=== PATIENT | male | born 1980 | race Caucasian/White ===

== ENCOUNTER 2021-12-05 17:10 | Emergency (ER) | payer MEDICARE, MEDICAID, SELFPAY ==
--- NOTE | 2021-12-05 17:15 | ED.DENTAL ---
HPI - Dental/Oral General Chief complaint: Dental/Oral Stated complaint: Toothache Time Seen by Provider: 12/05/21 17:15 Source: patient and RN notes reviewed History of Present Illness HPI Narrative: Patient is a 41-year-old male who presents the urgent care with complaints of left upper and lower dental pain. 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 Patient states that the left lower tooth broke off last night and he had to take a piece out of the gums . Patient denies of any fever, chills, nausea or vomiting. Patient did take ibuprofen for his pain. Patient states that he normally takes hydrocodone if he needs medication for pain . No other acute complaints. No acute distress noted. Patient read the plan of care. Some parts of this dictation were generated by voice recognition software and may contain typographical and/or grammatical inaccuracies. Related Data Home Medications Medication Instructions Recorded Confirmed carvedilol 25 mg PO BID 12/05/21 12/05/21 omeprazole 20 mg PO BID 12/05/21 12/05/21 sacubitril-valsartan [Entresto] 1 tablet PO BID 12/05/21 12/05/21 spironolactone 25 mg PO DAILY 12/05/21 12/05/21 Allergies Allergy/AdvReac Type Severity Reaction Status Date / Time Sulfa (Sulfonamide Allergy Rash Verified 12/05/21 17:29 Antibiotics) MYCINS Allergy Rash Uncoded 12/05/21 17:29 Review of Systems Review of Systems: CONSTITUTIONAL: Denies fever, chills, or sweats. EYES: Denies visual changes, redness, or discharge. ENT: Denies rhinorrhea, congestion, sore throat, or otalgia. Reports of upper and lower left dental pain CARDIOVASCULAR: Denies chest pain, palpitations, or edema. RESPIRATORY: Denies cough or dyspnea. GASTROINTESTINAL: Denies abdominal pain, nausea, vomiting, or diarrhea. GENITOURINARY: Denies dysuria or hematuria. SKIN: Denies rash or itching. MUSCULOSKELETAL: Denies back pain, joint pain, or myalgia. NEUROLOGIC: Denies headache, numbness, or weakness. All other systems reviewed are negative, except as documented in HPI. PMFSH Comments At the time of my signature, I reviewed and agree with the nursing past medical, surgical, social, and family history. There is no relevant family history pertinent to the patient complaint. Exam Narrative: GENERAL: This is a well-nourished, well-developed patient, in no apparent distress. HEAD: normocephalic, atraumatic. EYES: PERRL. Sclera clear/white. Vision is grossly intact. EARS: External ears normal NOSE: External nose normal with no obvious nasal discharge, nares without redness, no rhinorrhea. THROAT: Mucous membranes moist, posterior pharynx clear. DENTAL: Trench mouth, multiple carious lesions and avulsions of dentition. Moderate erythema surrounding the first and second left lower molars with large carious lesions/avulsed at the gumline NECK: Neck supple, non-tender without lymphadenopathy CARDIOVASCULAR: Regular rate and rhythm without murmurs, gallops, or rubs. RESPIRATORY: Clear to auscultation. Breath sounds equal bilaterally. No wheezes, rales, or rhonchi. SKIN: warm, intact with no suspicious lesions or rash, good texture and turgor. NEURO: awake, alert, and oriented to person, place and time. There were no obvious focal neurologic abnormalities. EXTREMITIES: No clubbing, cyanosis, or edema. Course Course Level of Care: Express Care Visit Vital Signs Vital signs: Vital Signs Temperature 99.3 F 12/05/21 17:21 Pulse Rate 78 12/05/21 17:21 Respiratory Rate 16 12/05/21 17:21 Blood Pressure 149/70 H 12/05/21 17:21 Pulse Oximetry 98 12/05/21 17:21 Temperature 99.3 F 12/05/21 17:21 Pulse Rate 78 12/05/21 17:21 Respiratory Rate 16 12/05/21 17:21 Blood Pressure 149/70 H 12/05/21 17:21 Pulse Oximetry 98 12/05/21 17:21 Reviewed-patient is informed that they may have pre-hypertension or hypertension based on a blood pressure reading in
[2021-12-05 17:21] VITALS: BP 149/70; PULSE 78; RESP 16; TEMP 37.4; O2SAT 98
== END 2021-12-05 18:04 | disposition home or self-care (01) ==
PROVIDERS: Emergency Provider Nurse Practitioner Family
DX: K04.7 Periapical abscess without sinus (principal); I50.9 Heart failure, unspecified; K21.9 Gastro-esophageal reflux disease without esophagitis
CPT/HCPCS: 99213; G0463

== ENCOUNTER 2024-12-10 16:36 | Emergency (ER) | payer MEDICARE, MEDICAID, SELFPAY ==
--- NOTE | ~2024-12-10 | CT_ITS ---
EXAMINATION: CT abdomen pelvis w con DATE: 12/10/2024 19:42 INDICATION: Left upper abdominal pain. TECHNIQUE: Computed tomography (CT) of the abdomen and pelvis was performed with 100 mL Omnipaque 350 intravenous contrast. Automated exposure control and iterative reconstruction technique were employe d. The dose-length product was 2131.49 mGy-cm. COMPARISON: None. FINDINGS: The visualized portions of the lung bases demonstrate a 4 mm nodule in right upper lobe, li babak benign. No pleural effusion. The heart size is normal. No pericardial effusion. There is diffuse hepatic steatosis. There is mild splenomegaly. The gallbladder, pancreas, adrenal glands, and kidney s are normal. There is an umbilical hernia containing fat. There are no dilated loops of bowel. There are changes of appendectomy. There are no pathologically enlarged lymph nodes. There is no free intr aperitoneal fluid. There is mild thoracic spondylosis and severe lower lumbar spondylosis. IMPRESSION: 1. Umbilical hernia containing fat. 2. Diffuse hepatic steatosis. 3. Mild splenomegaly, which may be secondary to obesity. Reviewed, dictated and finalized at location A. HAND
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
--- OUTSIDE RECORDS SUMMARY | 2024-12-10 16:37 | XMS_ITS | Encounter Summary ---
Author Organization [facility] Address 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
--- OUTSIDE RECORDS SUMMARY | 2024-12-10 16:37 | XMS_ITS | Clinical Summary ---
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
--- OUTSIDE RECORDS SUMMARY | 2024-12-10 16:37 | XMS_ITS | Referral Summary ---
Author Organization [facility] Address [address] [place] [address] Care Team Providers Care [employer] Technical Assistant Name Role Phone No, Physician Primary Care Provider [phone] Encounters Date Type Department Care Team Description 12/10/2024 1:13 PM [facility] Emergency [facility] Emergency Department [address] [place] [address] 11/29/2024 7:59 PM [facility] - 11/29/2024 10:00 PM [facility] Emergency [facility] Emergency Department [address] [place] [address] [phone] Acute left-sided thoracic back pain (Primary Dx) Discharge Disposition: Discharge to home or self care from Last 3 Months Allergies Active Allergy Reactions Criticality Noted Date Comments Aspirin Erythromycin Penicillins Hives Reaction: Hives, Sulfa (Sulfonamide Antibiotics) Hives Reaction: Hives, Medications acetaminophen-c odeine (TYLENOL with CODEINE #3) 300-30 mg per tablet Take 1 tablet by mouth every 6 (six) hours as needed for pain. 12 tablet 8 Active carvedilol (COREG) 25 mg tablet 8 Active omeprazole (PriLOSEC) 20 mg capsule 8 Active ENTRESTO 24-26 mg tabletIndicatio ns:chronic heart failure 8 Active spironolactone (ALDACTONE) 25 mg tablet 8 Active chlorhexidine (PERIDEX) 0.12 % solution Apply 15 mL to the mouth or throat 2 (two) times a day 120 mL 3 Active HYDROcodone-cherie taminophen (NORCO) 5-325 mg per tabletIndicatio ns:Pain Take 1 tablet by mouth every 6 (six) hours as needed for pain for up to 15 doses 15 tablet 3 Active lidocaine viscous (XYLOCAINE) 2 % solutionIndicat ions:Mouth Irritation Apply 10 mL to the mouth or throat 3 (three) times a day as needed (for mouth/dental pain) 100 mL 3 Active naproxen (NAPROSYN) 500 mg tablet Take 1 tablet (500 mg total) by mouth 2 (two) times a day with meals 30 tablet 4 Active methocarbamoL (ROBAXIN) 500 mg tablet Take 1 tablet (500 mg total) by mouth 2 (two) times a day 20 tablet 4 Active cyclobenzaprine (FLEXERIL) 10 mg tablet Take 1 tablet (10 mg total) by mouth 3 (three) times a day as needed for muscle spasms 30 tablet 5 Active ketorolac (TORADOL) 10 mg tablet Take 1 tablet (10 mg total) by mouth every 6 (six) hours as needed for pain 20 tablet 5 Active lidocaine (LIDODERM) 5 % Place 1 patch on the skin daily Use patch for 12 hours on, 12 hours off. Discard after each use 30 patch 5 Active lidocaine (LIDODERM) 5 % Place 1 patch on the skin daily for 14 days Remove & discard patch within 12 hours or as directed by MD. 14 patch 4 11/29/19 25 Discontinu ed(Therapy completed) Active Problems Problem Noted Date Diagnosed Date Dentalgia 10/06/2018 Dental abscess 10/06/2018 Dental caries extending into pulp 10/06/2018 Obstructive sleep apnea syndrome 01/20/2014 Overview (02/13/2017): Obstructive sleep apnea syndrome Morbid obesity 01/20/2014 Overview (02/14/2017): Morbid obesity Social History Tobacco Use Types Packs/Day Years Used Date Smoking Tobacco: Some Days Alcohol Use Standard Drinks/Week Comments No 0 (1 standard drink = 0.6 oz pur e alcohol) Personal Safety Answer Date Recorded Have you ever been in or are you currently in a harmful physical or emotional relationship or is someone making you feel afraid or unsafe? Denies 12/10/2024 Sex and Gender Information Value Date Recorded Sex Assigned at Not on file Legal Sex Male 10:13 PM SCRIBING MACHINE OPERATOR Gender Identity Not on file Sexual Orientation Not on file Last Filed Vital Signs Vital Sign Reading Time Taken Comments Blood Pressure 110/61 12/10/2024 1:34 PM SCRIBING MACHINE OPERATOR Pulse 77 12/10/2024 1:34 PM SCRIBING MACHINE OPERATOR Temperature 36.6 ??C (97.8 ??F) 12/10/2024 1:33 PM CS T Respiratory Rate 18 12/10/2024 1:34 PM SCRIBING MACHINE OPERATOR Oxygen Saturation 98% 12/10/2024 1:34 PM SCRIBING MACHINE OPERATOR Inhaled Oxygen Concentration - - Weight 176 kg (388 lb 0.2 oz) 12/10/2024 1:33 PM SCRIBING MACHINE OPERATOR Height 194.3 cm (6' 4.5 ) 11/29/2024 4:30 PM SCRIBING MACHINE OPERATOR Body Mass Index 46.61 11/29/2024 4:30 PM SCRIBING MACHINE OPERATOR Plan of Treatment Not on file Procedures Procedure Name Priority Date/Time Associated Diagnosis Comments EGFR STAT 12/10/2024 1:40 PM SCRIBING MACHINE OPERATOR DIFFERENTIAL AUTO STAT 12/10/2024 1:4 0 PM SCRIBING MACHINE OPERATOR LIPASE STAT 12/10/2024 1:40 PM SCRIBING MACHINE OPERATOR COMPREHENSIVE METABOLIC PANEL STAT 12/10/2024 1:40 PM SCRIBING MACHINE OPERATOR CBC WITH AUTO DIFFERENTIAL STAT 12/10/2024 1:40 PM SCRIBING MACHINE OPERATOR from Last 3 Months Results * eGFR (12/10/2024 1:40 PM SCRIBING MACHINE OPERATOR) eGFR >90 >=60 mL/min/1. 73 m2 Comment: Interpretive Data Reference Interval Normal ?>/= 90 mL/min/1.73m2 Mildly decreased* ? 60 - 89 mL/min/1.73m2 Mildly to moderately decreased ?45 - 59 mL/min/1.73m2 Moderately to severely decreased ??30 - 44 mL/min/1.73m2 Severely decreased ?15 - 29 mL/min/1.73m2 Kidney Failure ?< 15 ??mL/min/1.73m2 *Relative to young adult level Estimated glomerular filtration rate is determined by the 2020 CKD-EPI equation recommended by the National Kidney Foundation (A Unifying Approach to GFR Estimation: Recommendations of the NKF-ASK Task Force on Reassessing the Inclusion of Race in Diagnosing Kidney Disease, JASN 2020). The CKD-EPI equation should not be used for patients with unstable renal function and has not been validated in children and those over 70. Current interpretive data was last reviewed 2021. Blood 12/10/2024 1:40 PM SCRIBING MACHINE OPERATOR 12/10/2024 1:50 PM SCRIBING MACHINE OPERATOR Cleopatra Andrea MD LAB BLOOD ORDERABLE S Final Result [facility] ([place]) [address] [facility] Department of Laboratories [place], [place] [id number] * Differential, auto (12/10/2024 1:40 PM SCRIBING MACHINE OPERATOR) Neutrophil abs 5.7 1.5 - 6.5 K/cumm Imm gran abs 0.1 0.0 - 0.1 K/cumm [facility] ([place]) Lymphocyte abs 2.1 0.8 - 3.3 K/cumm [facility] ([place]) Monocyte abs 0.4 0.2 - 0.8 K/cumm [facility] ([place]) Eosinophil abs 0.2 0.0 - 0.5 K/cumm [facility] ([place]) Basophil abs 0.1 0.0 - 0.1 K/cumm [facility] ([place]) Neutrophil pct 66.4 % [facility] ([place]) Comment: Interpretive Data Percent cell count reference ranges are not reported, since discordance with absolute values may lead to misinterpretation of CBC data. Current Interpretive Data was last revised on 2018. Imm gran pct 1.1 % [facility] ([place]) Comment: Interpretive Data Percent cell count reference ranges are not reported, since discordance with absolute values may lead to misinterpretation of CBC data. Current Interpretive Data was last revised on 2018. Lymphocyte pct 24.8 % [facility] ([place]) Comment: Interpretive Data Percent cell count reference ranges are not reported, since discordance with absolute values may lead to misinterpretation of CBC data. Current Interpretive Data was last revised on 2018. Monocyte pct 4.5 % [facility] ([place]) Comment: Interpretive Data Percent cell count reference ranges are not reported, since discordance with absolute values may lead to misinterpretation of CBC data. Current Interpretive Data was last revised on 2018. Eosinophil pct 2.5 % [facility] ([place]) Comment: Interpretive Data Percent cell count reference ranges are not reported, since discordance with absolute values may lead to misinterpretation of CBC data. Current Interpretive Data was last revised on 2018. Basophil pct 0.7 % [facility] ([place]) Comment: Interpretive Data Percent cell count reference ranges are not reported, since discordance with absolute values may lead to misinterpretation of CBC data. Current Interpretive Data was last revised on 2018. Blood 12/10/2024 1:40 PM SCRIBING MACHINE OPERATOR 12/10/2024 1:50 PM SCRIBING MACHINE OPERATOR us Cleopatra Andrea MD LAB BLOOD ORDERABLE S Final Result [facility] ([place]) [address] [facility] [place] [address] * (ABNORMAL) CBC with auto differential (12/10/2024 1:40 PM SCRIBING MACHINE OPERATOR) WBC 8.5 3.8 - 9.9 K/cumm Hgb 11.3(L) 13.0 - 17.5 g/dL [facility] ([place]) Hct 33.7(L) 38.9 - 50.3 % [facility] ([place]) Plt 265 150 - 400 K/cumm [facility] ([place]) MPV 9.9 9.1 - 12.3 fL [facility] RBC 4.15(L) 4.30 - 5.80 M/cumm [facility] ([place]) MCV 81.2(L) 81.3 - 96.4 fL [facility] ([place]) MCH 27.2 27.1 - 33.3 pg [facility] ([place]) MCHC 33.5 32.3 - 35.7 g/dL [facility] ([place]) RDW CV 16.7(H) 11.1 - 14.9 % [facility] ([place]) RDW SD 49.0(H) 35.7 - 48.1 fL [facility] NRBC abs 0.00 0.00 - 0.01 K/cumm [facility] Blood (Blood, Venous) 12/10/2024 1:40 PM SCRIBING MACHINE OPERATOR 12/10/2024 1:50 PM SCRIBING MACHINE OPERATOR Cleopatra Andrea MD LAB BLOOD ORDERABLE S Final Result [facility] ([place]) [address] [facility] [place] [address] * Lipase (12/10/2024 1:40 PM SCRIBING MACHINE OPERATOR) [facility] Lipase 25 10 - 99 Units/L Blood (Blood, Venous) 12/10/2024 1:40 PM SCRIBING MACHINE OPERATOR 12/10/2024 1:50 PM SCRIBING MACHINE OPERATOR Cleopatra Andrea MD LAB BLOOD ORDERABLE S Final Result [facility] ([place]) [address] [facility] [place] [address] * (ABNORMAL) Comprehensive metabolic panel (12/10/2024 1:40 PM SCRIBING MACHINE OPERATOR) Sodium 139 135 - 145 mmol/L Potassium, pl 3.7 3.3 - 4.9 mmol/L [facility] ([place]) Chloride 106 97 - 110 mmol/L [facility] ([place]) CO2 24 22 - 32 mmol/L [facility] ([place]) Anion gap 10 2 - 15 mmol/L [facility] ([place]) BUN 7 6 - 25 mg/dL [facility] ([place]) Creatinine 0.68(L) 0.80 - 1.30 mg/dL [facility] ([place]) Glucose 126 70 - 199 mg/dL [facility] ([place]) Comment: Interpretive Data Fasting glucose >/= 126 mg/dl is diagnostic for diabetes. ?? Fasting is defined as no caloric intake for at least 8 hours. Fasting glucose between 100 mg/dl to 125 mg/dl is diagnostic of prediabetes. In a patient with classic symptoms of hyperglycemia or hyperglycemic crisis, a random glucose >/= 200 mg/dl is diagnostic for diabetes. In the absence of unequivocal hyperglycemia, results should be confirmed by repeat testing. The classification and Diagnosis of Diabetes Diabetes Care 202; 46: S19-S40. Current interpretive data was last revised 2022. Calcium 8.4(L) 8.5 - 10.3 mg/dL [facility] ([place]) Bilirubin, total 0.4 0.1 - 1.2 mg/dL [facility] ([place]) Protein, pl 6.7 6.5 - 8.5 g/dL [facility] ([place]) Albumin 3.7 3.5 - 5.0 g/dL [facility] ([place]) Alk phos 75 40 - 130 Units/L [facility] ([place]) ALT 25 7 - 55 Units/L [facility] ([place]) AST 18 10 - 50 Units/L [facility] ([place]) Blood 12/10/2024 1:40 PM SCRIBING MACHINE OPERATOR 12/10/2024 1:50 PM SCRIBING MACHINE OPERATOR us Cleopatra Andrea MD LAB BLOOD ORDERABLE S Final Result [facility] ([place]) [address] [facility] [place] [address] from Last 3 Months Insurance [facility]1983 MEDICAID IDPA [facility] MEDICARE [facility] Care Teams [employer] Technical Assistant Relationship Specialty Start Date End Date No, Physician PCP - General 05/25/24
--- OUTSIDE RECORDS SUMMARY | 2024-12-10 16:37 | XMS_ITS | Encounter Summary ---
Author Organization [facility] Healthcare Address [address] [place] [address] Care Team Providers Care Utility Helicopter Repairer Name Role Phone No, Physician Primary Care Provider Reason for Visit * Reason Comments Abdominal Pain Encounter Details Date Type Department Care Team (Late st Contact Info) Description 12/10/2024 1:13 PM LOG BUNCHER Emergency [facility] Emergency Department [address] [place] [id number] Social History Tobacco Use Types Packs/Day Years [...] on file Legal Sex Male 10:13 PM LOG BUNCHER Gender Identity Not on file Sexual Orientation Not on file documented as of this encounter Last Filed Vital Signs Vital Sign Reading Time Taken Comments Blood Pressure 110/61 12/10/2024 1:34 PM LOG BUNCHER Pulse 77 12/10/2024 1:34 PM LOG BUNCHER Temperature 36.6 ??C (97.8 ??F) 12/10/2024 1:33 PM CS T Respiratory Rate 18 12/10/2024 1:34 PM LOG BUNCHER Oxygen Saturation 98% 12/10/2024 1:34 PM LOG BUNCHER Inhaled Oxygen Concentration - - Weight 176 kg (388 lb 0.2 oz) 12/10/2024 1:33 PM LOG BUNCHER Height - - Body Mass Index 46.61 11/29/2024 4:30 PM LOG BUNCHER documented in this encounter ED Notes * Brandin Garcia RN - 12/10/2024 1:31 PM CST Pt to ED via POV. Per Pt he has had LUQ for the past 2 weeks. Pt reports diarrhea x2 weeks. BUNCHER documented in this encounter Plan of Treatment Scheduled Orders Name Type Priority Associated Diagnoses Orde r Schedule Urinalysis reflex to microscopic and culture Urine Microbiology STAT STAT for 1 Occurrences starting 12/10/2024 until 12/10/2024 documented as of this encounter Procedures Procedure Name Priority Date/Time Associated Diagnosis Comments EGFR STAT 12/10/2024 1:40 PM LOG BUNCHER DIFFERENTIAL AUTO STAT 12/10/2024 1:4 0 PM LOG BUNCHER CBC WITH AUTO DIFFERENTIAL STAT 12/10/2024 1:40 PM LOG BUNCHER LIPASE STAT 12/10/2024 1:40 PM LOG BUNCHER COMPREHENSIVE METABOLIC PANEL STAT 12/10/2024 1:40 PM LOG BUNCHER documented in this encounter Results * eGFR (12/10/2024 1:40 PM LOG BUNCHER) eGFR >90 >=60 mL/min/1. 73 m2 Comment: Interpretive Data Reference Interval Normal ?>/= 90 mL/min/1.73m2 Mildly decreased* ? 60 - 89 mL/min/1.73m2 Mildly to moderately decreased ?45 - 59 mL/min/1.73m2 Moderately to severely decreased ??30 - 44 mL/min/1.73m2 Severely decreased ?15 - 29 mL/min/1.73m2 Kidney Failure ?< 15 ??mL/min/1.73m2 *Relative to young adult level Estimated glomerular filtration rate is determined by the 2021 CKD-EPI equation recommended by the National Kidney [...] last reviewed 2021. Blood 12/10/2024 1:40 PM LOG BUNCHER 12/10/2024 1:50 PM LOG BUNCHER us Cleopatra Andrea MD LAB BLOOD ORDERABLE S Final Result [facility] ([place]) 1 [facility] [place] [address] * Differential, auto (12/10/2024 1:40 PM LOG BUNCHER) Neutrophil abs 5.7 1.5 - 6.5 K/cumm [...] revised on 2018. Basophil pct 0.7 % [facility] ([place]) Comment: Interpretive Data Percent cell count reference ranges are not reported, since discordance with absolute values may lead to misinterpretation of CBC data. Current Interpretive Data was last revised on 2018. Blood 12/10/2024 1:40 PM LOG BUNCHER 12/10/2024 1:50 PM LOG BUNCHER Cleopatra Andrea MD LAB BLOOD ORDERABLE S Final Result [facility] ([place]) 1 [facility] [place] [address] * Lipase (12/10/2024 1:40 PM LOG BUNCHER) Pathologist [facility] Lipase 25 10 - 99 Units/L Blood (Blood, Venous) 12/10/2024 1:40 PM LOG BUNCHER 12/10/2024 1:50 PM LOG BUNCHER Cleopatra Andrea MD LAB BLOOD ORDERABLE S Final Result [facility] ([place]) 1 [facility] [place] [address] * (ABNORMAL) Comprehensive metabolic panel (12/10/2024 1:40 PM LOG BUNCHER) Sodium 139 135 - 145 mmol/L Potassium, pl 3.7 3.3 - 4.9 mmol/L [facility] ([place]) Chloride 106 97 - 110 mmol/L [facility] [...] classification and Diagnosis of Diabetes Diabetes Care 2021; 46: S19-S40. Current interpretive data was last [...] [facility] ([place]) Blood 12/10/2024 1:40 PM LOG BUNCHER 12/10/2024 1:50 PM LOG BUNCHER us Cleopatra Andrea MD LAB BLOOD ORDERABLE S Final Result [facility] ([place]) 1 [facility] [place] [address] * (ABNORMAL) CBC with auto differential (12/10/2024 1:40 PM LOG BUNCHER) WBC 8.5 3.8 - 9.9 K/cumm Hgb 11.3(L) 13.0 - 17.5 g/dL [facility] ([place]) Hct 33.7(L) 38.9 - 50.3 % [facility] ([place]) Plt 265 150 - 400 K/cumm [facility] ([place]) MPV 9.9 9.1 - 12.3 fL [facility] ([place]) RBC 4.15(L) 4.30 - 5.80 M/cumm [facility] ([place]) MCV 81.2(L) 81.3 - 96.4 fL [facility] ([place]) MCH 27.2 27.1 - 33.3 pg [facility] ([place]) MCHC 33.5 32.3 - 35.7 g/dL [facility] ([place]) RDW CV 16.7(H) 11.1 - 14.9 % [facility] ([place]) RDW SD 49.0(H) 35.7 - 48.1 fL [facility] ([place]) NRBC abs 0.00 0.00 - 0.01 K/cumm [facility] ([place] Blood (Blood, Venous) 12/10/2024 1:40 PM LOG BUNCHER 12/10/2024 1:50 PM LOG BUNCHER us Cleopatra Andrea MD LAB BLOOD ORDERABLE S Final Result [facility] ([place]) 1 [facility] [place] [address] documented in this encounter Visit Diagnoses Not on filedocumented in this encounter Orders Nursing Count Last Ordered Date First Orde red Date MISCELLANEOUS NURSING CARE ORDER (SPECIFY) 1 12/10/2024 IV Count Last Ordered Date First Orde red Date SALINE LOCK IV 1 12/10/2024 documented in this encounter Care Teams Utility Helicopter Repairer Relationship Specialty Start Date End Date No, Physician PCP - General 05/25/24 documented as of this encounter
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
--- OUTSIDE RECORDS SUMMARY | 2024-12-10 16:37 | XMS_ITS | Clinical Summary ---
[facility] Organization [facility] Address [address] [place] [address] Care Team Providers Care Manager Test Name Role Phone No, Physician Primary Care Provider [phone] Allergies Active Allergy Reactions Criticality Noted Date [...] Morbid obesity 01/20/2014 Overview (02/14/2017): Morbid obesity Encounters Date Type Department Care Team Description 12/10/2024 1:13 PM [facility] Emergency [facility] Emergency Department [address] [place] [address] 11/29/2024 7:59 PM [facility] - 11/29/2024 10:00 PM [facility] Emergency Department [address] [place] [address] Acute left-sided thoracic back pain (Primary Dx) Discharge Disposition: Discharge to home or self care from Last 3 Months Medical History Medical History Date Comments Tension headache Headache, tensi on Hx Other Medical Headache, migra ine Myocardial infarction (HCC) Myoc ardial infarction Family History Medical History Relation Name Comments Cancer Father Cancer; Migraines Mother Migraine; Other Other No family histo ry of headache; Relation Name Status Comments Father Mother Other Social History Tobacco Use Types Packs/Day Years [...] on file Legal Sex Male 10:13 PM DELIVERY RN Gender Identity Not on file Sexual Orientation Not on file Obstetrics History Last Filed Vital Signs Vital Sign Reading Time Taken Comments Blood Pressure 110/61 12/10/2024 1:34 PM DELIVERY RN Pulse 77 12/10/2024 1:34 PM DELIVERY RN Temperature 36.6 ??C (97.8 ??F) 12/10/2024 1:33 PM CS T Respiratory Rate 18 12/10/2024 1:34 PM DELIVERY RN Oxygen Saturation 98% 12/10/2024 1:34 PM DELIVERY RN Inhaled Oxygen Concentration - - Weight 176 kg (388 lb 0.2 oz) 12/10/2024 1:33 PM DELIVERY RN Height 194.3 cm (6' 4.5 ) 11/29/2024 4:30 PM DELIVERY RN Body Mass Index 46.61 11/29/2024 4:30 PM DELIVERY RN Plan of Treatment Health Maintenance Due Date Last Done Comments Depression Screening 1980 Hepatitis C Screening 1980 Pneumococcal vaccine <65 (1 of 2 - PCV) 1986 Varicella Vaccines (1 of 2 - 13+ 2-dose series) 1993 Hepatitis B Screening 1998 Regular Well Visit/Exam 18-64 1998 DTaP/Tdap/Td Vaccine (1 - Tdap) 11/20/2002 3 Influenza Vaccine (#1) 2024 HPV Vaccines Aged Out No longer eligi ble based on patient's age to complete this topic Procedures Procedure Name Priority Date/Time Associated Diagnosis Comments EGFR STAT 12/10/2024 1:40 PM DELIVERY RN DIFFERENTIAL AUTO STAT 12/10/2024 1:4 0 PM DELIVERY RN LIPASE STAT 12/10/2024 1:40 PM DELIVERY RN COMPREHENSIVE METABOLIC PANEL STAT 12/10/2024 1:40 PM DELIVERY RN CBC WITH AUTO DIFFERENTIAL STAT 12/10/2024 1:40 PM DELIVERY RN from Last 3 Months Results * eGFR (12/10/2024 1:40 PM DELIVERY RN) eGFR >90 >=60 mL/min/1. 73 m2 Comment: [...] last reviewed 2021. Blood 12/10/2024 1:40 PM DELIVERY RN 12/10/2024 1:50 PM DELIVERY RN us Cleopatra Andrea MD LAB BLOOD ORDERABLE S Final Result [facility] [place]) 1 [facility] [place] [address] * Differential, auto (12/10/2024 1:40 PM DELIVERY RN) Neutrophil abs 5.7 1.5 - 6.5 K/cumm [...] revised on 2018. Blood 12/10/2024 1:40 PM DELIVERY RN 12/10/2024 1:50 PM DELIVERY RN Cleopatra Andrea MD LAB BLOOD ORDERABLE S Final Result [facility] ([place]) 1 [facility] [employer] [address] * (ABNORMAL) CBC with auto differential (12/10/2024 1:40 PM DELIVERY RN) WBC 8.5 3.8 - 9.9 K/cumm Hgb [...] NRBC abs 0.00 0.00 - 0.01 K/cumm [facility] ([place]) Blood (Blood, Venous) 12/10/2024 1:40 PM DELIVERY RN 12/10/2024 1:50 PM DELIVERY RN Cleopatra Andrea MD LAB BLOOD ORDERABLE S Final Result [facility] ([place]) 1 [facility] [place] [address] * Lipase (12/10/2024 1:40 PM DELIVERY RN) Lipase 25 10 - 99 Units/L Blood (Blood, Venous) 12/10/2024 1:40 PM DELIVERY RN 12/10/2024 1:50 PM DELIVERY RN us Cleopatra Andrea MD LAB BLOOD ORDERABLE S Final Result [facility] ([place]) 1 [facility] [place] [address] * (ABNORMAL) Comprehensive metabolic panel (12/10/2024 1:40 PM DELIVERY RN) Sodium 139 135 - 145 mmol/L Potassium, pl 3.7 3.3 - 4.9 mmol/L [facility] Chloride 106 97 - 110 mmol/L [facility] ([place]) CO2 24 22 - 32 mmol/L [facility] ([place]) Anion gap 10 2 - 15 mmol/L [facility] ([place]) BUN 7 6 - 25 mg/dL [facility]) Creatinine 0.68(L) 0.80 - 1.30 mg/dL [facility]) Glucose 126 70 - 199 mg/dL [facility] ([place]) Comment: Interpretive Data Fasting glucose [...] [facility] ([place]) Blood 12/10/2024 1:40 PM DELIVERY RN 12/10/2024 1:50 PM DELIVERY RN us Cleopatra Andrea MD LAB BLOOD ORDERABLE S Final Result [facility] ([place]) 1 [facility] [place] [address] from Last 3 Months [facility] ID[employer] Care Teams Manager Test Relationship Specialty Start Date End Date No, Physician PCP - General 05/25/24
--- OUTSIDE RECORDS SUMMARY | 2024-12-10 16:37 | XMS_ITS | Encounter Summary ---
Author Organization [employer] Address 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
--- OUTSIDE RECORDS SUMMARY | 2024-12-10 16:37 | XMS_ITS | Encounter Summary ---
Author Organization [employer] Address 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
--- OUTSIDE RECORDS SUMMARY | 2024-12-10 16:38 | XMS_ITS | Clinical Summary ---
Author Organization [facility] [employer] Address [address] [facility] [place] [address] Care Team Providers Care 1St Pressman Name Role Phone Davy Bacon MD Primary Care Provider [phone] Source Comments [facility] [employer],non-owned Affiliates and Associated Physician Practices is amultiple site organization consisting of ambulatory clinics and hospital sitesin [place], [place], [place] and [place]. This disclosure is being madepursuant to the Care Everywhere program and may not contain all information available regarding this patient. Last updated 18.[facility] [employer] Allergies Active Allergy Reactions Criticality Noted Date Comments Clindamycin Other Low 01/21/2014 Chemical Hepatitis Erythromycin Other Medium 03/29/2011 Chemical hepatitis Penicillins Skin Reactions 03/29/2011 Sulfa Drugs Skin Reactions 03/29/2011 Medications * Be aware that medications may not be up to date on this document. Alwaysverify current medications with the patient. 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 Social History Tobacco Use Types Packs/Day Years Used Date Smoking Tobacco: Former Cigarettes Q uit: 11/10/2005 Smokeless Tobacco: Current Alcohol Use Standard Drinks/Week Comments No 0 (1 standard drink = 0.6 oz pur e alcohol) Sex and Gender Information Value Date Recorded Sex Assigned at Not on file Gender Identity Not on file Sexual Orientation Not on file Last Filed Vital Signs Vital Sign Reading Time Taken Comments Blood Pressure 121/77 08/17/2019 3:51 PM CDT Pulse 88 08/17/2019 3:51 PM CDT Temperature 36.6 ??C (97.9 ??F) 08/23/2015 2:45 PM CD T Respiratory Rate 15 08/23/2015 2:45 PM CDT Oxygen Saturation 100% 08/23/2015 2:45 PM CDT Inhaled Oxygen Concentration - - Weight 166.5 kg (367 lb) 08/17/2019 3:51 PM CDT Height 195.6 cm (6' 5 ) 08/17/2019 3:51 PM CDT Body Mass Index 43.52 08/17/2019 3:51 PM CDT Plan of Treatment Health Maintenance Due Date Last Done Comments LIPID TESTING 1980 HIV SCREENING 1995 HEPATITIS C SCREENING 07/06/1998 DTAP/TDAP/TD VACCINES (1 - Tdap) 1999 HEPATITIS B VACCINE (1 of 3 - 19+ 3-dose series) 1999 COVID-19 VACCINE ( - 2023-2 5 season) 2024 INFLUENZA VACCINE (#1) 2024 DEPRESSION SCREENING 11/10/2024 MEDICARE AWV ? CALENDAR YEAR 2024 ZOSTER VACCINE (1 of 2) 2030 HIB VACCINE Aged Out No longer eligi ble based on patient's age to complete this topic HPV VACCINE Aged Out No longer eligi ble based on patient's age to complete this topic MENINGOCOCCAL (Group B) VACCINE Aged Out No longer eligible based on patient's age to complete this topic MENINGOCOCCAL VACCINE Aged Out No demetrius ravin eligible based on patient's age to complete this topic PNEUMOCOCCAL VACCINE Aged Out No long er eligible based on patient's age to complete this topic Care Teams 1St Pressman Relationship Specialty Start Date End Date Davy Bacon MD PCP - General 05/21/12
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
--- OUTSIDE RECORDS SUMMARY | 2024-12-10 16:38 | XMS_ITS | Patient Health Summary ---
Author Organization [facility] Address [address] [address] Care Team Providers Care Insurance Claims Supervisor Name Role Phone Davy Bacon MD Primary Care Provider [phone] Note from [facility],non-owned Affiliates and Associated Physician Practices is amultiple site organization consisting of ambulatory clinics and hospital sitesin [place], [place], [place] and [place]. This disclosure is being madepursuant to the Care Everywhere program and may not contain all information available regarding this patient. Last updated 18.[facility] Allergies * Clindamycin(Other) -Low Criticality * Erythromycin(Other) -Medium Criticality * Penicillins(Skin Reactions) * Sulfa Drugs(Skin Reactions) Medications * Be aware that medications may not be up to date on this document. Alwaysverify current medications with the patient. * carvedilol (COREG) 25 MG tablet(Started 06/18/2019) * omeprazole (PRILOSEC) 20 MG capsule(Started 08/17/2019) * ENTRESTO 24-26 MG tablet(Started 07/30/2019) * spironolactone (ALDACTONE) 25 MG tablet(Started 08/17/2019) Active Problems Problem Noted Date Diagnosed Date [...] Mass Index 43.52 08/17/2019 3:51 PM CDT Procedures * PATHOLOGY TISSUE(Performed 08/23/2015) * BASIC METABOLIC PANEL (CALCIUM TOTAL)(Performed 08/23/2015) * PATHOLOGY/GENETICS HISTORICAL-ONBASE(Performed 08/23/2015) * PATHOLOGY TISSUE(Performed 01/13/2014) * PATHOLOGY/GENETICS HISTORICAL-ONBASE(Performed 01/13/2014) * BASIC METABOLIC PANEL (CALCIUM TOTAL)(Performed 01/04/2014) * TYPE + SCREEN PANEL(Performed 01/04/2014) * BASIC METABOLIC PANEL (CALCIUM TOTAL)(Performed 01/04/2014) * CBC W AUTO DIFFERENTIAL(Performed 01/04/2014) * XR CHEST 2VW(Performed 01/04/2014) * FL SWALLOWING FUNCTION STUDY(Performed 05/04/2013) * PATHOLOGY REPORTS - HPF HISTORICAL(Performed 09/23/2012) * PATHOLOGY/GENETICS HISTORICAL-ONBASE(Performed 09/03/2012) * XR KNEE LEFT 3VW(Performed 05/21/2012) * LAB HISTORICAL RESULTS-ONBASE(Performed 07/07/2011) * LAB HISTORICAL RESULTS-ONBASE(Performed 07/07/2011) * LAB HISTORICAL RESULTS-ONBASE(Performed 07/07/2011) * LAB HISTORICAL RESULTS-ONBASE(Performed 04/03/2011) Results * PATHOLOGY TISSUE (08/23/2015 12:55 PM CDT) Only the most recent of2 resultswithin the time period is included. Surgical Pathology Tissue CLINICAL HISTORY: No history is given. FINAL DIAGNOSIS: SKIN, NECK, MIDLINE, EXCISION: - ? CICATRIX GROSS DESCRIPTION: The specimen is received in formalin in one container for gross and microscopic examination, labeled with the patient's name, Viral Gramajo and midline neck scar , and is an un-oriented white-morley, hair-bearing skin ellipse measuring 5.5 x 2.0 cm and excised to a depth of 0.4 cm. Within the approximate center of the skin ellipse is a scar measuring 1.1 cm in length x 0.1 cm in width. ??No other lesions are identified. ??The specimen is inked blue. ??The specimen is sectioned and personal banking representative sections through the scar are submitted in cassette A1. PW/gume MICROSCOPIC DESCRIPTION: Review of the material reveals squamous epithelium overlying fibrotic dermis. ??Focal areas of the epidermis are flattened with loss of rete ridges. ??No evidence of dysplasia or malignancy is appreciated. MH/PW/edk The performance characteristics of all immunohistochemical and indirect immunofluorescence stains (if any) cited in this report were determined by the Histopathology Laboratory of [facility].?? Some of these tests were developed by our own laboratory and have not been cleared or approved by the US Food and Drug Administration.?The FDA does not require this test to go through premarket FDA review.?These tests are used for clinical purposes. They should not be regarded as investigational or for research.?? This laboratory is certified under the Clinical Laboratory Improvement Amendments (CLIA) as qualified to perform high complexity clinical laboratory testing. This case has been personally reviewed and interpreted by the attending (teaching) pathologist. Final Diagnosis performed by Luli Gonzalez M.D. Electronically signed 08/24/2015 [facility] Other (qualifier value) 08/23/2015 12:55 PM CDT 08/23/2015 1:[address] [facility] ([place] - 08/24/2015 3:46 PM CDT Collection Date->08/23/15 Collection Time->12:55 PM Specimen A->Neck midline neck scar, perm path Lamberto Moffett MD LAB - PATHOLOGY/CYTO LOGY ORDERABLES [facility] ([place]) * (ABNORMAL) BASIC METABOLIC PANEL (CALCIUM TOTAL) (08/23/2015 11:22 AM CDT) Only the most recent of3 resultswithin the time period is included. BUN 17 7 - 26 mg/dL [facility] Creatinine 0.7 0.6 - 1.2 mg/dL [facility] Sodium 137 136 - 145 mmol/L [facility] Potassium 4.4 3.5 - 4.5 mmol/L [facility] Chloride 105 98 - 107 mmol/L [facility] CO2 22 22 - 29 mmol/L [facility] Glucose 88 70 - 115 mg/dL [facility] Calcium 8.9 8.4 - 10.2 mg/dL [facility] Anion Gap 14 8 - 18 [facility] BUN/Creatinine Ratio 24(H) 7 - 23 [facility] Osmolality Calculated 271 270 - 300 mOsm/kg [facility] eGFR >60 >60 mL/min/1.7 3 m2 [facility] Blood specimen (specimen) BLOOD SPECIMEN / Unknown 08/23/2015 11:22 AM CDT 08/23/2015 11:30 AM CDT Lamberto Moffett MD LAB - CHEMISTRY [facility] Performing Organization Address [facility] Co de Phone Number [facility] [address] [phone] * PATHOLOGY/GENETICS HISTORICAL-ONBASE (08/23/2015) Only the most recent of3 resultswithin the time period is included. 08/23/2015 Narrative [facility] - 08/25/2015 8:55 AM CDT Historical Provider LAB - CHEMISTRY Dara TOMPKINS Performing Organization Address City/[facility]/ZIP Co de Phone Number [facility] [address] * TYPE + SCREEN PANEL (01/04/2014 10:14 AM [employer]SEMBL[employer]) Interpretation ABO/Rh Patient O POS [facility] Antibody Screen NEGATIVE [facility] 01/04/2014 10:1 4 AM [employer] 01/04/2014 1:11 PM [employer] Cristhian Villalobos MD LAB - BLOOD BANK ORD ERABLES [facility] [address] [phone] * (ABNORMAL) CBC W AUTO DIFFERENTIAL (01/04/2014 10:14 AM [employer]SEMBLER) WBC 9.6 3.5 - 10.5 10^3/uL [facility] RBC 5.25 4.30 - 5.70 10^6/uL [facility] Hemoglobin 14.7 13.5 - 17.5 g/dL [facility] Hematocrit 44.4 39.0 - 50.0 % [facility] MCV 84.6 81.0 - 97.0 FL [facility] MCH 28.0 28.0 - 34.0 PG [facility] MCHC 33.1 32.0 - 36.0 G/DL [facility] Platelet 262 150 - 400 10^3/uL [facility] RDW 16.5(H) 11.2 - 14.8 % [facility] RDW-SD 50.1(H) 36 - 50 FL [facility] MPV 11.7 9.3 - 12.8 FL [facility] Neutrophils % 70.2(H) 35.0 - 70.0 % [facility] Lymphocytes % 21.5 19.7 - 55.1 % [facility] Monocytes % 6.7 3 - 15 % [facility] Eosinophils % 1.3 0.0 - 6.0 % [facility] Basophils % 0.3 0.0 - 1.5 % [facility] Neutrophils Absolute 6.8 1.7 - 7.0 10^3/uL [facility] Lymphocyte Absolute 2.1 0.8 - 2.9 10^3/uL [facility] Monocytes Absolute 0.6 0.14 - 0.66 10^3/uL [facility] Eosinophils Absolute 0.12 0.00 - 0.22 10^3/uL [facility] Basophils Absolute 0.03 0.02 - 0.06 10^3/uL [facility] Differential Type AUTO DIFFERENTIAL [facility] Venous blood specimen (specimen) 01/04/2014 10:14 AM [employer] 01/04/2014 1:10 PM [employer] Cristhian Villalobos MD LAB - HEMATOLOGY ORD ERABLES [facility] [address] [place] [address], [facility] [phone] * XR CHEST 2VW (01/04/2014 9:52 AM [employer]SEMBL[employer]) Anatomical Region Laterality Modality Chest Other Impressions 01/04/2014 2:49 PM [employer] Impression: No acute pulmonary process. Report dictated by Oleg Quezada M.D. (resident). This report was approved ??by Oleg Quezada M.D. ?? on 01/04/2014 1:58 PM . I, Dr. ESME MOORE M.D. have personally reviewed and interpreted this examination/study. This report was electronically signed by ESME MOORE M.D. ??on 01/04/2014 2:49 PM . Narrative 01/04/2014 2:49 PM [employer] Exam: XR CHEST PA AND LATERAL Date: 01/04/2014 9:52 AM History: asthma Comparison: Portable chest on 06/29/2011 Findings: No focal consolidation, pleural effusion, or pneumothorax is present. ??The cardiomediastinal silhouette is normal. ??The visible bony thorax is intact. A horizontally oriented safety pin superimposes the upper thoracic trachea at approximately level T3, but is removed on additional views. Procedure Note Esme Moore MD - 02/07/2018 Exam: XR CHEST PA AND LATERAL Date: 01/04/2014 9:52 AM History: asthma Comparison: Portable chest on 06/29/2011 Findings: No focal consolidation, pleural effusion, or pneumothorax is present. Thecardiomediastinal silhouette is normal. The visible bony thorax isintact. A horizontally oriented safety pin superimposes the upper thoracictrachea at approximately level T3, but is removed on additional views. IMPRESSION Impression: No acute pulmonary process. Report dictated by Oleg Quezada M.D. (resident). This report was approved by Oleg Quezada M.D. on 01/04/2014 1:[address] ESME Miles M.D. have personally reviewed and interpretedthis examination/study. This report was electronically signed by ESME MOORE M.D. on01/04/2014 2:49 PM . Vicente Allen MD DIAGNOSTIC IMAGING O RDERABLES * FL SWALLOWING FUNCTION STUDY (05/04/2013 10:57 AM CDT) Anatomical Region Laterality Modality Chest Other Impressions 05/04/2013 11:55 AM CDT Impression: Normal swallowing. Please see speech pathology report for further discussion. Fluoro time: 25 seconds This exam has been personally reviewed and interpreted by Dr. Malika Malhotra (attending radiologist). Report dictated by Jose C Verdugo MD (resident). Dr. Nicolette Miles M.D. have personally reviewed and interpreted this examination/study. This report was electronically signed by Nicolette MALHOTRA M.D. ??on 05/04/2013 11:55 AM . Narrative 05/04/2013 11:55 AM CDT Exam: FL BARIUM SWALLOW MOD W SPEECH Date: 05/04/13 History: tracheal stenosis Comparison: None available Technique: Fluoroscopic swallowing examination was performed in conjunction with speech pathology. Liquids and foods of varying consistencies mixed with barium were used to assess swallowing. Findings: The patient has a T-tube in place. Normal oral transit time was observed. No evidence of tracheal aspiration or laryngeal penetration was seen. The visualized esophagus revealed no strictures or diverticula. Procedure Note Sanna Malhotra MD - 02/08/2018 Exam: FL BARIUM SWALLOW MOD W SPEECH Date: 05/04/13 History: tracheal stenosis Comparison: None available Technique: Fluoroscopic swallowing examination was performed in conjunction withspeech pathology. Liquids and foods of varying consistencies mixed withbarium were used to assess swallowing. Findings: The patient has a T-tube in place. Normal oral transit time was observed.No evidence of tracheal aspiration or laryngeal penetration was seen. Thevisualized esophagus revealed no strictures or diverticula. IMPRESSION Impression: Normal swallowing. Please see speech pathology report for further discussion. Fluoro time: 25 seconds This exam has been personally reviewed and interpreted by Dr. Malika Malhotra(attending radiologist). Report dictated by Jose C Verdugo MD (resident). I, Dr. Nicolette MALHOTRA M.D. have personally reviewed and interpreted thisexamination/study. This report was electronically signed by Nicolette MALHOTRA M.D. on05/04/2013 11:55 AM . Joleen Pate [employer] OFFICER FLUOROSCOPY ORDERABLES * PATHOLOGY REPORTS - HPF HISTORICAL (09/23/2012 3:10 PM [employer] ASSEMBLER) 09/23/2012 3:10 PM [employer]ER Narrative [facility] - 09/23/2012 3:10 PM [employer] ASSEMBLER Historical Provider LAB - PATHOLOGY/C YTOLOGY ORDERABLES Performing Organization Address City/State/[facility] de Phone Number [facility] [address] [place] [address] * XR KNEE LEFT 3VW (05/21/2012 12:56 PM CDT) Anatomical Region Laterality Modality Lower Extremity Other Impressions 05/22/2012 1:53 PM CDT Impression: No evidence of acute osseous abnormality. This examination has been personally reviewed and interpreted by Larry Mendes M.D. (attending radiologist). Report dictated by Luana Bonner M.D. Narrative 05/22/2012 1:53 PM CDT Left knee, 3 views, weight-bearing History: ??31 old male with left knee pain Findings: The osseous structures are intact and well aligned. The joint spaces are preserved. There is no focal soft tissue swelling or evidence of joint effusion. Procedure Note Larry Mendes MD - 02/08/2018 Left knee, 3 views, weight-bearing History: 31 old male with left knee pain Findings: The osseous structures are intact and well aligned. The joint spaces arepreserved. There is no focal soft tissue swelling or evidence of jointeffusion. IMPRESSION Impression: No evidence of acute osseous abnormality. This examination has been personally reviewed and interpreted by Aroldo Mcgee (attending radiologist). Report dictated by Aroldo Raya Cliff Schwraz [facility] DIAGNOSTIC IMAGIN G ORDERABLES * LAB HISTORICAL RESULTS-ONBASE (07/07/2011) Only the most recent of4 resultswithin the time period is included. 07/07/2011 Cristhian Villalobos MD LAB - CHEMISTRY [facility] Care Teams Insurance Claims Supervisor Relationship Specialty Start Date End Date Davy Bacon MD PCP - General 05/21/12
--- OUTSIDE RECORDS SUMMARY | 2024-12-10 16:38 | XMS_ITS | CONTINUITY OF CARE DOCUMENT ---
Author Name radha garcia Address Unknown Organization [facility] Address [address] [place] [address] Phone [phone] Care Team Providers Care Master Police Detective Name Role Phone Russell MACHADO, Reji Unavailable [phone] NANY MACHADO, ERROLPENDING SALE TO [facility] Unavailable [phone] KATHI SKAGGS MD Unavailable [phone] PROBLEMS Condition Status Date Provider Notes Elevated blood glucose- 01/04 labs active Sha Torres RN ABNORMAL ELECTROCARDIOGRAM active Kerry keyes TRACHEAL STENOSIS-MECHANICAL COMPLICATION OF TRACHEOSTOMY active Reji Wells MD Morbid obesity active Reji Wells MD CHEST PAIN-NORMAL CATH 12/21 active Reji Wells MD SHORTNESS OF BREATH - RESOLVED active Fang Wells MD Non-Ischemic CARDIOMYOPATHY- EF 45% 01/2019 active Reji Wells MD Cold completed - Karon Romero ANA ROSA completed - Karon Romero ANA ROSA - on BIPAP active Reji Wells MD Unspecified sleep apnea completed - Reji Wells MD Cardiovascular screening completed - Reji Wells MD HYPERTENSION active Reji Wells MD Syncope active Reji Wells MD ENCOUNTERS Date Type Provider Location Encounter Diag nosis - In-person encounter Office Visit Reji Wells MD [facility] Syncope - In-person encounter Office Visit Reji Wells MD [facility] Morbid obesity - In-person encounter Office Visit Reji Wells MD [facility] - In-person encounter Office Visit Reji Wells MD [facility] - In-person encounter Office Visit Reji Wells MD [facility] - In-person encounter Office Visit Reji Wells MD [facility] - In-person encounter Office Visit Reji Wells MD [facility] HYPERTENSION - In-person encounter Office Visit Reji Wells MD [facility] - In-person encounter Office Visit Reji Wells MD [facility] 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 - In-person encounter Office Visit Reji Wells MD [facility] - In-person encounter Office Visit [facility] ANA ROSA - on BIPAP - In-person encounter Office Visit Reji Wells MD [facility] ANA ROSA - on BIPAPUnspecified sleep apneaCardiovascular screening - In-person encounter Office Visit Reji Wells MD [facility] 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[facility] - In-person encounter Office Visit Reji Wells MD [facility] - In-person encounter Office Visit Reji Wells MD [facility] - In-person encounter Office Visit Reji Wells MD [facility] 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 - In-person encounter Office Visit Reji Wells MD [facility] 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 - In-person encounter Office Visit Reji Wells MD [facility] - In-person encounter Office Visit Reji Wells MD [facility] 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 - In-person encounter Office Visit Reji Wells MD [facility] SHORTNESS OF BREATH - RESOLVED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 - In-person encounter Office Visit Reji Wells MD [facility] CHEST PAIN-NORMAL CATH 12/21 - In-person encounter Office Visit Reji Wells MD [facility] - In-person encounter Office Visit Reji Wells MD [facility] TRACHEAL STENOSIS-MECHANICAL COMPLICATION OF TRACHEOSTOMYMorbid obesityCHEST PAIN-NORMAL CATH 12/21SHORTNESS OF BREATH - RESOLVED VITAL SIGNS Date Observation Value Provider Body Mass Index (Ratio) 52.03 kg/m2 Navya Wells MD blood pressure, diastolic 85 mm[Hg] [facility] blood pressure, systolic 146 mm[Hg] Justine bruna [place] oxygen saturation, oximetry 97 % [facility] pulse rate 90 /min [facility] weight E&M 394.4 [lb_av] [facility] blood pressure, cuff size regular [facility] height E&M 73 [in_i] [facility] Body Mass Index (Ratio) 47.23 kg/m2 Navya Wells MD blood pressure, diastolic 84 mm[Hg] Brigida nkLogic blood pressure, systolic 126 mm[Hg] Elvia kLogic pulse rate 82 /min Petr blood pressure, cuff size large Ja vineet blood pressure, diastolic 84 mm[Hg] Geo manley blood pressure, systolic 126 mm[Hg] Chris dubose oxygen saturation, oximetry 98 % Petr respiratory rate E&M 12 /min Petr weight E&M 358 [lb_av] Petr height E&M 73 [in_i] Petr Body Mass Index (Ratio) 48.47 kg/m2 Manuela Tracey Body Mass Index (Ratio) 48.47 kg/m2 Manuela Tracey oxygen saturation, oximetry 97 % Reji Wells MD blood pressure, cuff size regular St acbernice Serna blood pressure, diastolic 82 mm[Hg] St acy Kareem blood pressure, systolic 130 mm[Hg] Sharmaine Serna oxygen saturation, oximetry 97 % Graciela Serna blood pressure, diastolic 71 mm[Hg] Brigida nkLogsasha blood pressure, systolic 121 mm[Hg] Elvia Gonzalezogsasha respiratory rate E&M 17 /min Freida L ively pulse rate 77 /min Freida Bhavna weight E&M 367.4 [lb_av] Freida Bhavna height E&M 73 [in_i] Freida Liverut pulse rate 77 /min Gracielarg Serna respiratory rate E&M 17 /min Graciela D luh weight E&M 367.4 [lb_av] Gracielarg Serna height E&M 73 [in_i] Gracielarg Serna blood pressure, diastolic 71 mm[Hg] Timothy Wells MD blood pressure, systolic 121 mm[Hg] Sangeetha Wells MD Body Mass Index (Ratio) 51.84 kg/m2 Jack Dietz oxygen saturation, oximetry 97 % Chastity Marcos blood pressure, diastolic 77 mm[Hg] Ch astity Marcos blood pressure, systolic 149 mm[Hg] Ginny stity Marcos weight E&M 393 [lb_av] Chastity Marcos respiratory rate E&M 18 /min Chastit y Marcos height E&M 73 [in_i] Ginnystity Marcos Body Mass Index (Ratio) 52.24 kg/m2 Manuela solis Alexy blood pressure, diastolic 66 mm[Hg] Li nkLog blood pressure, systolic 122 mm[Hg] Elvia kLog blood pressure, diastolic 66 mm[Hg] Cy antelmo Bautista blood pressure, systolic 122 mm[Hg] Joslyn Bautista blood pressure, cuff size regular Cy antelmo Bautista pulse rate 80 /min Annel malloy oxygen saturation, oximetry 96 % Annel Bautista respiratory rate E&M 16 /min Annel Bautista weight E&M 396 [lb_av] Annel Campbel l height E&M 73 [in_i] Annel Campbel l height E&M 73 [in_i] Reji Wells MD Body Mass Index (Ratio) 49.79 kg/m2 Navya Wells MD blood pressure, cuff size regular Kr isty Sarah blood pressure, diastolic 70 mm[Hg] Kr isty Sarah blood pressure, systolic 150 mm[Hg] Kri sty Carrie oxygen saturation, oximetry 98 % Roslyn Carrie pulse rate 78 /min Roslyn Sarah respiratory rate E&M 19 /min Roslyn Sarah weight E&M 377.4 [lb_av] Roslyn Carrie height E&M 73 [in_i] Roslyn Carrie Body Mass Index (Ratio) 50.26 kg/m2 Navya Wells MD blood pressure, cuff size large La Shantal Owen blood pressure, diastolic 70 mm[Hg] La Shantal Owen blood pressure, systolic 138 mm[Hg] LaW tcio Owen oxygen saturation, oximetry 99 % Emeka Owen respiratory rate E&M 18 /min Emeka Owen pulse rate 70 /min Emeka Owen height E&M 73 [in_i] Emeka Owen weight E&M 381 [lb_av] Emeka Owen Body Mass Index (Ratio) 47.62 kg/m2 Navya Wells MD blood pressure, diastolic 80 mm[Hg] Kr isty Sarah blood pressure, systolic 130 mm[Hg] Kri sty Sarah oxygen saturation, oximetry 97 % Roslyn Carrie pulse rate 69 /min Roslyn Carrie respiratory rate E&M 18 /min Roslyn Carrie blood pressure, cuff size regular Kr isty Sarah weight E&M 361 [lb_av] Roslyn Carrie height E&M 73 [in_i] Roslyn Carrie Body Mass Index (Ratio) 51.58 kg/m2 Navya Wells MD oxygen saturation, oximetry 98 % Annel Bautista respiratory rate E&M 185 /min Annel Bautista pulse rate 81 /min Annel malloy blood pressure, cuff size large Rg Bautista blood pressure, diastolic 70 mm[Hg] Rg Bautista blood pressure, systolic 116 mm[Hg] Joslyn Bautista weight E&M 391 [lb_av] Annel malloy height E&M 73 [in_i] Annel Morrison l Body Mass Index (Ratio) 50.66 kg/m2 Navya Wells MD blood pressure, diastolic 78 mm[Hg] Ki kyara Rodriguez blood pressure, systolic 110 mm[Hg] Maurice macedo Rodriguez oxygen saturation, oximetry 95 % [facility] E&[facility] 16 /min [facility] pulse [facility] 71 /min [facility] weight E&M 384 [lb_av] [place] Rodriguez height E&M 73 [in_i] [facility] Body Mass Index (Ratio) 51.32 kg/m2 Rafa cam Romero respiratory rate #2 16 Annelise Mcghee harini pulse rate #2 66 Annelise Verónica blood pressure, dobson tolic, second observation 80 mm[Hg] Anneliseniels Sanches blood pressure, syst olic, second observation 128 mm[Hg] Annelise Verónica blood pressure, cuff size large Clarence Rodrigues blood pressure, diastolic 80 mm[Hg] Clarence Rodrigues blood pressure, systolic 128 mm[Hg] Mahendra niels Sanches oxygen saturation, oximetry 98 % Annelise Verónica respiratory rate E&M 16 /min Annelise Rey peterson pulse rate 66 /min Annelise Verónica weight E&M 389 [lb_av] Annelise Sanches height E&M 73 [in_i] Annelise Sanches Body Mass Index (Ratio) 50.79 kg/m2 Rafa levy Heather blood pressure, cuff size large Gianni Cristina blood pressure, diastolic 70 mm[Hg] Gianni Cristina blood pressure, systolic 120 mm[Hg] Kirt Cristina oxygen saturation, oximetry 98 % Fay Cristina respiratory rate E&M 18 /min Fay tejadaelianecherie pulse rate 82 /min Fay Gibson [facility] weight E&M 385 [lb_av] Fay [facility] height E&M 73 [in_i] Fay Gibson [facility] Body Mass Index (Ratio) 51.58 kg/m2 Navya Wells MD blood pressure, diastolic, left arm 76 mm [Hg] [facility] blood pressure, systolic, left arm 130 mm [Hg] [facility] blood pressure, diastolic, right arm 80 m m[Hg] [facility] blood pressure, systolic, right arm 138 m m[Hg] Niteshtremayne Dangelo blood pressure, diastolic 76 mm[Hg] Chencho Dangelo blood pressure, systolic 130 mm[Hg] Nisa Dangelo pulse rate 76 /min [facility] rate E&M 18 /min Nitesh [facility] oxygen saturation, oximetry 98 % [facility] weight E&M 391 [lb_av] [facility] height E&M 73 [in_i] [facility] Body Mass Index (Ratio) 50.13 kg/m2 Rafa Romeor blood pressure, diastolic 80 mm[Hg] Gilberto Smith blood pressure, systolic 120 mm[Hg] Isaac Smith oxygen saturation, oximetry 98 % Roslyn Carrie respiratory rate E&M 18 /min Roslyn Sarah pulse rate 86 /min Roslyn Smith blood pressure, resting No Shayne Smith weight E&M 380 [lb_av] Roslyn Smith height E&M 73 [in_i] Roslyn Smith Body Mass Index (Ratio) 44.64 kg/m2 Gege Umanzor blood pressure, diastolic 80 mm[Hg] Nathan Umanzor blood pressure, systolic 120 mm[Hg] Alfie Umanzor pulse rate 79 /min Temo Umanzor oxygen saturation, oximetry 98 % Temo Umanzor respiratory rate E&M 18 /min Temo Umanzor weight E&M 338.4 [lb_av] Temo Umanzor blood pressure, diastolic 76 mm[Hg] Rey Perkins blood pressure, systolic 124 mm[Hg] Kye Perkins Body Mass Index (Ratio) 41.42 kg/m2 Patrizia cooper Perkins pulse rate 74 /min Mely Perkins oxygen saturation, oximetry 96 % Mely Perkins respiratory rate E&M 17 /min Mely Perkins weight E&M 314 [lb_av] Mely Perkins Body Mass Index (Ratio) 38.80 kg/m2 Anea maria eugenia Octavio blood pressure, diastolic, left arm 90 mm [Hg] Aneatris [facility] blood pressure, systolic, left arm 140 mm [Hg] Aneatris Octavio blood pressure, diastolic, right arm 100 mm[Hg] Aneatris Octavio blood pressure, systolic, right arm 138 m m[Hg] Aneatris Octavio blood pressure, diastolic 90 mm[Hg] An eatris Octavio blood pressure, systolic 140 mm[Hg] Ane atris Octavio pulse rate 88 /min Aneatris Octavio oxygen saturation, oximetry 99 % Aneatris [facility] respiratory rate E&M 18 /min Altaatri s [facility] weight E&M 293 [lb_av] Altaatris [facility] Body Mass Index (Ratio) 41.31 kg/m2 Kayode del cid [facility] blood pressure, diastolic, left arm 90 mm [Hg] Aneatris [facility] blood pressure, systolic, left arm 144 mm [Hg] Aneatris [facility] blood pressure, diastolic, right arm 100 mm[Hg] Aneatris [facility] blood pressure, systolic, right arm 150 m m[Hg] Aneatris [facility] blood pressure, diastolic 100 mm[Hg] An nevaeh [facility] blood pressure, systolic 150 mm[Hg] Alta billingss [facility] pulse rate 76 /min [facility] oxygen saturation, oximetry 99 % [facility] E&M 20 /min [facility] weight E&M 312 [lb_av] Altaatris [facility] Body Mass Index (Ratio) 44.23 kg/m2 Kayode del cid [facility] blood pressure, diastolic, left arm 80 mm [Hg] Altaatris [facility] blood pressure, systolic, left arm 128 mm [Hg] Altaatris [facility] blood pressure, diastolic, right arm 76 m m[Hg] Altaatris [facility] blood pressure, systolic, right arm 130 m m[Hg] Altaatris [facility] blood pressure, diastolic 76 mm[Hg] An nevaeh [facility] blood pressure, systolic 130 mm[Hg] Alta billingss [facility] pulse rate 80 /min [facility] oxygen saturation, oximetry 99 % [facility] rate E&M 18 /min [facility] weight E&M 334 [lb_av] Altaatris [facility] height E&M 73 [in_i] Elliotis [facility] blood pressure, diastolic, left arm 82 mm [Hg] Brennan Mejia blood pressure, systolic, left arm 118 mm [Hg] Brennan [place] blood pressure, diastolic, right arm 90 m m[Hg] Brennan [place] blood pressure, systolic, right arm 132 m m[Hg] Brennan [place] blood pressure, diastolic 90 mm[Hg] Maryanne seph [place] blood pressure, systolic 132 mm[Hg] Adam eph [place] pulse rate 78 /min [place] oxygen saturation, oximetry 96 % Brennan [place] respiratory rate E&M 20 /min Brennan [place] weight E&M 360 [lb_av] [place] blood pressure, diastolic, left arm 97 mm [Hg] [place] blood pressure, systolic, left arm 157 mm [Hg] [place] blood pressure, diastolic, right arm 90 m m[Hg] Brennan [place] blood pressure, systolic, right arm 173 m m[Hg] Brennan [place] blood pressure, diastolic 97 mm[Hg] Maryanne seph [place] blood pressure, systolic 157 mm[Hg] Adam eph [place] pulse rate 83 /min [place] oxygen saturation, oximetry 97 % [place] respiratory rate E&M 14 /min [place] weight E&M 300 [lb_av] [place] blood pressure, diastolic, left arm 66 mm [Hg] Brittannie Shaun blood pressure, systolic, left arm 130 mm [Hg] Brittannie Shaun blood pressure, diastolic, right arm 83 m m[Hg] Brittannie Darlington blood pressure, systolic, right arm 136 m m[Hg] Brittannie Dar[place] blood pressure, diastolic 83 mm[Hg] Br ittannie [place] blood pressure, systolic 136 mm[Hg] Alice ttaamy [place] pulse rate 89 /min Mike ness oxygen saturation, oximetry 98 % Mike Dunn respiratory rate E&M 22 /min Juliocesar Dunn weight E&M 350 [lb_av] Mike ness ALLERGIES Allergy Name Onset Date Reaction Criticality Status ERYTHROMYCIN Low Criticality active SULFA Low Criticality active RESULTS Date Observation Value Provider Reference Range Interpretation Location pro brain natriuretic peptide 49 pg/mL LinkLogic 0-86 hemoglobin A1C, blood, as % of total hemoglobin 4.8 % [facility] 4.8-5.6 free thyroxine index 1.6 [facility] 1.2-4.9 triiodothyronine resin uptake 27 % [facility] 24-39 thyroxine, serum, total 5.9 ug/dL [facility] 4.5-12.0 thyroid stimulating hormone, serum 1.050 u[IU]/mL [facility] 0.450-4.500 lipoprotein, beta, serum, point, quantitative, calculated 95 mg/dL [facility] 0-99 HDL cholesterol, serum 38 mg/dL [facility] >39 Low triglyceride, serum, random 121 mg/dL [facility] 0-149 cholesterol, serum 155 mg/dL [facility] [phone]/09/ 23 platelet count 265 X10E3/UL [facility] 761-180 7600/09/ 23 red blood cell distribution width 16.2 % [facility] 11.6-15.4 High mean corpuscular hemoglobin concentration, RBC 33.3 G/DL [facility] 31.5-35.7 mean corpuscular hemoglobin, RBC 28.2 pg [facility] 26.6-33.0 mean corpuscular volume, RBC 85 fL [facility] 79-97 hematocrit, blood 37.2 % [facility] 37.5-51.0 Low hemoglobin, blood 12.4 g/dL [facility] 13.0-17.7 Low erythrocyte (RBC) count 4.40 X10E6/UL [facility] 4.14-5.80 leukocyte count, blood 9.9 X10E3/UL [facility] 3.4-10.8 alanine aminotransferase (SGPT), serum 32 1/L [facility] 0-44 aspartate aminotransferase (SGOT), serum 19 1/L [facility] 0-40 alkaline phosphatase, serum 85 1/L [facility] 44-121 bilirubin, serum, total 0.6 mg/dL [facility] 0.0-1.2 albumin/globulin ratio, serum 1.5 [facility] 1.2-2.2 globulin, serum 2.7 [facility] 1.5-4.5 albumin, serum 4.1 g/dL [facility] 4.0-5.0 protein, total, serum 6.8 g/dL [facility] 6.0-8.5 calcium, serum 8.7 mg/dL [facility] 8.7-10.2 carbon dioxide, venous blood 20 mmol/L [facility] 20-29 chloride, serum 106 mmol/L [facility] 96-106 potassium, serum 4.4 mmol/L [facility] 3.5-5.2 sodium, serum 141 mmol/L [facility] 927-005 3705/09/ 23 urea nitrogen/creatinine ratio, serum 13 [facility] 9-20 eGFR if 135 mL/min/{1 .73_m2} [facility] >59 eGFR if not 117 mL/min/{1 .73_m2} [facility] >59 creatinine, serum 0.71 mg/dL [facility] 0.76-1.27 Low urea nitrogen, blood 9 mg/dL [facility] 6-24 blood glucose, random 96 mg/dL [facility] 65-99 pro brain natriuretic peptide 44 pg/mL [facility] 0-86 lipoprotein, beta, serum, point, quantitative, calculated 101 mg/dL [facility] 0-99 High very low density lipoproteins 27 mg/dL [facility] 5-40 HDL cholesterol, serum 39 mg/dL [facility] >39 Low triglyceride, serum, random 133 mg/dL [facility] 0-149 cholesterol, serum 167 mg/dL [facility] [phone]/02/ 26 thyroid stimulating hormone, serum 0.779 u[IU]/mL [facility] 0.450-4.500 hemoglobin A1C, blood, as % of total hemoglobin 4.9 % [facility] 4.8-5.6 platelet count 272 X10E3/UL [facility] [phone]/02/ 26 red blood cell distribution width 15.8 % [facility] 11[facility]15[facility]4 High mean corpuscular hemoglobin concentration, RBC 32.3 G/DL [facility] 31.5-35.7 mean corpuscular hemoglobin, RBC 27.7 pg [facility] 26.6-33.0 mean corpuscular volume, RBC 86 fL LinkLog 79-97 hematocrit, blood 39.9 % [facility] 37.5-51.0 hemoglobin, blood 12.9 g/dL [facility] 13.0-17.7 Low erythrocyte (RBC) count 4.66 X10E6/UL [facility] 4.14-5.80 leukocyte count, blood 9.7 X10E3/UL [facility] 3.4-10.8 alanine aminotransferase (SGPT), serum 24 1/L [facility] 0-44 aspartate aminotransferase (SGOT), serum 20 1/L [facility] 0-40 alkaline phosphatase, serum 79 1/L [facility] 39-117 bilirubin, serum, total 0.4 mg/dL [facility] 0.0-1.2 albumin/globulin ratio, serum 1.7 [facility] 1.2-2.2 globulin, serum 2.6 [facility] 1.5-4.5 albumin, serum 4.4 g/dL [facility] 4.0-5.0 protein, total, serum 7.0 g/dL [facility] 6.0-8.5 calcium, serum 9.5 mg/dL [facility] 8.7-10.2 carbon dioxide, venous blood 23 mmol/L [facility] 20-29 chloride, serum 105 mmol/L [facility] 96-106 potassium, serum 5.0 mmol/L [facility] 3.5-5.2 sodium, serum 143 mmol/L [facility] 150-267 3084/02/ 26 urea nitrogen/creatinine ratio, serum 15 [facility] 9-20 eGFR if 134 mL/min/{1 .73_m2} [facility] >59 eGFR if not 116 mL/min/{1 .73_m2} [facility] >59 creatinine, serum 0.75 mg/dL [facility] 0.76-1.27 Low urea nitrogen, blood 11 mg/dL [facility] 6-20 blood glucose, random 105 mg/dL [facility] 65-99 High pro brain natriuretic peptide 14 pg/mL [facility] 0-86 free thyroxine index 1.7 [facility] 1.2-4.9 triiodothyronine resin uptake 26 % [facility] 24-39 thyroxine, serum, total 6.4 ug/dL [facility] 4.5-12.0 thyroid stimulating hormone, serum 0.569 u[IU]/mL [facility] 0.450-4.500 hemoglobin A1C, blood, as % of total hemoglobin 4.7 % [facility] 4.8-5.6 Low lipoprotein, beta, serum, point, quantitative, calculated 106 mg/dL [facility] 0-99 High very low density lipoproteins 30 mg/dL [facility] 5-40 HDL cholesterol, serum 31 mg/dL [facility] >39 Low triglyceride, serum, random 150 mg/dL [facility] 0-149 High cholesterol, serum 167 mg/dL [facility] [phone]/08/ 31 platelet count 293 X10E3/UL [facility] [phone]/08/ 31 red blood cell distribution width 15.8 % [facility] 12.3-15.4 High mean corpuscular hemoglobin concentration, RBC 33.6 G/DL [facility] 31.5-35.7 mean corpuscular hemoglobin, RBC 27.6 pg [facility] 26.6-33.0 mean corpuscular volume, RBC 82 fL [facility] 79-97 hematocrit, blood 36.6 % [facility] 37.5-51.0 Low hemoglobin, blood 12.3 g/dL [facility] 13.0-17.7 Low erythrocyte (RBC) count 4.46 X10E6/UL [facility] 4.14-5.80 leukocyte count, blood 10.4 X10E3/UL [facility] 3.4-10.8 alanine aminotransferase (SGPT), serum 24 1/L [facility] 0-44 aspartate aminotransferase (SGOT), serum 18 1/L [facility] 0-40 alkaline phosphatase, serum 77 1/L [facility] 39-117 bilirubin, serum, total 0.7 mg/dL [facility] 0.0-1.2 albumin/globulin ratio, serum 1.6 [facility] 1.2-2.2 globulin, serum 2.8 [facility] 1.5-4.5 albumin, serum 4.6 g/dL [facility] 3.5-5.5 protein, total, serum 7.4 g/dL [facility] 6.0-8.5 calcium, serum 9.1 mg/dL [facility] 8.7-10.2 carbon dioxide, venous blood 24 mmol/L [facility] 20-29 chloride, serum 103 mmol/L [facility] 96-106 potassium, serum 5.0 mmol/L [facility] 3.5-5.2 sodium, serum 141 mmol/L [facility] 430-148 2044/08/ 31 urea nitrogen/creatinine ratio, serum 20 [facility] 9-20 eGFR if 118 mL/min/{1 .73_m2} [facility] >59 eGFR if not 102 mL/min/{1 .73_m2} [facility] >59 creatinine, serum 0.94 mg/dL [facility] 0.76-1.27 urea nitrogen, blood 19 mg/dL [facility] 6-20 blood glucose, random 91 mg/dL [facility] 65-99 pro brain natriuretic peptide 22 pg/mL [facility] 0-86 microalbumin/creatin ine ratio, urine 2.9 MG/G CREAT [facility] 0.0-30.0 microalbumin, random, urine 0.47 mg/dL [facility] Units converted. See lab report for original value. creatinine, random, urine 162.4 mg/dL [facility] Not Estab. lipoprotein, beta, serum, point, quantitative, calculated 111 mg/dL [facility] 0-99 High very low density lipoproteins 28 mg/dL [facility] 5-40 HDL cholesterol, serum 31 mg/dL [facility] >39 Low triglyceride, serum, random 141 mg/dL [facility] 0-149 cholesterol, serum 170 mg/dL [facility] [phone]/05/ 22 calcium, serum 9.3 mg/dL [facility] 8.7-10.2 carbon dioxide, venous blood 24 mmol/L [facility] 18-29 chloride, serum 101 mmol/L [facility] 96-106 potassium, serum 4.8 mmol/L [facility] 3.5-5.2 sodium, serum 140 mmol/L [facility] 002-061 6129/05/ 22 urea nitrogen/creatinine ratio, serum 16 [facility] 9-20 eGFR if 131 mL/min/{1 .73_m2} [facility] >59 eGFR if not 113 mL/min/{1 .73_m2} [facility] >59 creatinine, serum 0.82 mg/dL [facility] 0.76-1.27 urea nitrogen, blood 13 mg/dL [facility] 6-20 blood glucose, random 97 mg/dL [facility] 65-99 hemoglobin A1C, blood, as % of total hemoglobin 4.6 % [facility] 4.8-5.6 Low magnesium, serum 2.0 mg/dL [facility] 1.6-2.3 alanine aminotransferase (SGPT), serum 23 1/L [facility] 0-44 aspartate aminotransferase (SGOT), serum 21 1/L [facility] 0-40 alkaline phosphatase, serum 76 1/L [facility] 39-117 bilirubin, serum, total 0.5 mg/dL [facility] 0.0-1.2 albumin/globulin ratio, serum 1.7 [facility] 1.2-2.2 globulin, serum 2.6 [facility] 1.5-4.5 albumin, serum 4.4 g/dL [facility] 3.5-5.5 protein, total, serum 7.0 g/dL [facility] 6.0-8.5 calcium, serum 9.1 mg/dL [facility] 8.7-10.2 carbon dioxide, venous blood 26 mmol/L [facility] 18-29 chloride, serum 102 mmol/L [facility] 96-106 potassium, serum 4.5 mmol/L [facility] 3.5-5.2 sodium, serum 142 mmol/L [facility] [phone]/12/ 16 urea nitrogen/creatinine ratio, serum 21 [facility] 9-20 High eGFR if not 117 mL/min/{1 .73_m2} [facility] >59 creatinine, serum 0.75 mg/dL [facility] 0.76-1.27 Low urea nitrogen, blood 16 mg/dL [facility] 6-20 blood glucose, random 107 mg/dL [facility] 65-99 High B-type natriuretic peptide 17.3 (?) [facility] 0-100 Normal calcium, serum 9.8 mg/dL [facility] 8.6-10.0 Normal blood glucose, random 95 mg/dL [facility] 74-109 Normal eGFR if 167 mL/min/{1 .73_m2} [facility] >60 Normal eGFR if not 138 mL/min/{1 .73_m2} [facility] >60 Normal urea nitrogen/creatinine ratio, serum 25.7 ratio [facility] 8.0-25.0 High creatinine, serum 0.7 mg/dL [facility] 0.70-1.20 Normal urea nitrogen, blood 18 mg/dL [facility] 6-20 Normal carbon dioxide, venous blood 26 mmol/L [facility] 22-29 Normal chloride, serum 100 MEQ/L [facility] 98-107 Normal potassium, serum 5.0 MEQ/L [facility] 3.5-5.1 Normal sodium, serum 138 MEQ/L [facility] 136-145 Normal creatinine, serum 0.8 mg/dL Gio Johnson potassium, serum 4.1 mmol/L Gio Johnson sodium, serum 145 mmol/L Gio Johnson HISTORY OF MEDICATION USE Medication Status Instructions Dates Provider Indications Com ments omeprazole 20 mg capsule,delayed release(DR/EC) active Take 1 capsule by mouth twice a day Fay Cristina spironolactone 25 mg tablet active Take 1 tablet by mouth daily. Fay Jonnie Entresto 24-26 mg tablet active Take 1 tablet by mouth twice daily. Fay Cristina carvedilol 25 mg tablet active Take 1 1/2 tablet by mouth twice a day Fay Cristina albuterol sulfate 90 mcg/actuation HFA aerosol inhaler completed INHALE 2 PUFFS BY MOUTH EVERY 6 HOURS NEEDED FOR WHEEZING - Reji Wells MD omeprazole 20 mg capsule,delayed release(DR/EC) completed Take 1 capsule by mouth twice daily. - Fay Cristina Entresto 24-26 mg tablet completed Take 1 tablet by mouth twice a day - Vamsi Perkins carvedilol 25 mg tablet completed Take 1.5 tablet by mouth twice a day - Reji Wells MD FLONASE 50 MCG/ACT NASAL SUSPENSION active 1 puff into both nostrils Annel Bautista spironolactone 25 mg tablet completed Take 1 tablet by mouth once a day - Reji Wells MD COREG 12.5 MG ORAL TABLET completed 1 tablet twice daily for 1 month. Then, 2 tablets twice daily - Reji Wells MD omeprazole 20 mg capsule,delayed release(DR/EC) completed one cap twice a day - Gigi Rojaskins MUCINEX TABLET EXTENDED RELEASE 12 HOUR completed 4 times daily - Aneatris Brown SINGULAIR TABLET completed 1 tablet by mouth at bedtime - Aneatris Brown Ventolin HFA 90 mcg/actuation HFA aerosol inhaler completed 1-2 puff four times a day as needed - Reji Wells MD ibuprofen 800 mg tablet active Take 1 tablet by mouth as needed Annel Bautista ZANTAC 150 MG ORAL TABLET completed take one tablet daily - Tyra Cunningham SOCIAL HISTORY Date Observation Value Provider drug use none Reji Wells MD number of years as a smoker less than 10 years Reji Wells MD cigarette use yes Reji Wells MD smoking status Former smoker Reji sarabia MD drug use none Reji Wells MD number of years as a smoker less than 10 years Reji Wells MD cigarette use yes Reji Wells MD smoking status Former smoker Reji sarabia MD physical exercise, f requency, days per week yes Graciela Serna caffeine use, averag e drinks per day yes Graciela Kareem number of years as a smoker less than 10 years Graciela Serna cigarette use yes Gracielarg Serna smoking status Former smoker Gracielarg Serna social history reviewed E&M revi ewed - no changes required Reji Wells MD social history E&M Marital Statu s: Single L breonna with family/friends E thnicity: Smoking History: Danielle du is a former smoker. Meagan Dietz social history reviewed E&M revi ewed - no changes required Meagan Dietz physical exercise, f requency, days per week yes Chastity Marcos caffeine use, averag e drinks per day yes Chastity Marcos number of years as a smoker less than 10 years Chastity Marcos cigarette use yes Chastity Marcos smoking status Former smoker Chastity Hog ue social history E&M Marital Statu s: Single L breonna with family/friends E thnicity: Smoking History: aDnielle du is a former smoker. Reji Wells MD social history reviewed E&M revi ewed - no changes required Reji Wells MD physical exercise, f requency, days per week yes Annel Michele caffeine use, averag e drinks per day yes Annel Michele number of years as a smoker less than 10 years Annel Michele cigarette use yes Annel Powereduarda katz smoking status Former smoker Annel Power garvey social history E&M Marital Statu s: Single L breonna with family/friends E thnicity: Smoking History: Danielle du is a former smoker. Reji Wells MD social history reviewed E&M revi ewed - no changes required Reji Wells MD physical exercise, f requency, days per week yes Roslyn Smith caffeine use, averag e drinks per day yes Roslyn Smith number of years as a smoker less than 10 years Roslyn Sarah cigarette use yes Roslyn Carrie smoking status Former smoker Roslyn Smith social history E&M Marital Statu s: Single L breonna with family/friends E thnicity: Smoking History: Danielle du is a former smoker. Reji Wells MD smoking status Former smoker Reji sarabia MD social history reviewed E&M revi ewed - no changes required Reji Wells MD social history E&M Marital Statu s: Single L breonna with family/friends E thnicity: Smoking History: Danielle du is a former smoker. Haider Greenfield social history reviewed E&M revi ewed - no changes required Haider Greenfield physical exercise, f requency, days per week yes Roslyn Crowellby caffeine use, averag e drinks per day yes Roslyn Smith number of years as a smoker less than 10 years Roslyn Smith cigarette use yes Roslyn Smith smoking status Former smoker Roslyn Smith social history E&M Marital Statu s: Single L breonna with family/friends E thnicity: Smoking History: P ana laura is a former smoker. Reji Wlels MD social history reviewed E&M revi ewed - no changes required Reji Wells MD physical exercise, f requency, days per week yes Annel Michele alcohol use, average drinks per day none Annel Michele caffeine use, averag e drinks per day yes Annel Michele drug use none Annel Morrison mellissa number of years as a smoker less than 10 years Annel Michele cigarette use yes Annel Powereduarda katz smoking status Former smoker Annel Power garvey social history E&M Marital Statu s: Single L breonna with family/friends E thnicity: Smoking History: P ana laura is a former smoker. Reji Wells MD social history reviewed E&M revi ewed - no changes required Reji Wells MD physical exercise, f requency, days per week yes [place] Rodriguez alcohol use, average drinks per day [facility] use, averag e drinks per day yes [facility] drug use none Ana Laura Rodriguez number of years as a smoker less than 10 years [facility] smoking status Former smoker [facility] social history reviewed E&M revi ewed - no changes required Reji Wells MD social history reviewed E&M revi ewed - no changes required Reji Wells MD physical exercise, f requency, days per week yes Fay Cristina alcohol use, average drinks per day none Fay Mayselder caffeine use, averag e drinks per day yes Fay Fariaser drug use none Fay Gibson lder number of years as a smoker less than 10 years Fay Mayselder cigarette use yes Fay rocha smoking status Former smoker Fay choelder social history reviewed E&M revi ewed - no changes required Reji Wells MD number of grandchildren Reji Wells MD social history reviewed E&M revi ewed - no changes required Reji Wells MD cigarette use yes Roslynbernice Smith smoking status Former smoker Roslyn Smith social history reviewed E&M revi ewed - no changes required Reji Wells MD social history E&M Marital Statu s: Single L breonna with family/friends E thnicity: Smoking History: U nknown if patient has ever smoked. Reji Wells MD smoking status Unknown if ever smoked Sangeetha Wells MD physical exercise, f requency, days per week yes Reji Wells MD alcohol use, average drinks per day none Reji Wells MD caffeine use, averag e drinks per day yes Reji Wells MD drug use none Reji Wells MD smoking status Unknown if ever smoked Sangeetha Wells MD social history reviewed E&M revi ewed - no changes required Reji Wells MD social history reviewed E&M reviewed Reji Wells MD social history reviewed E&M reviewed Reji Wells MD smoking status unknown if ever smoked Alta Cunningham social history reviewed E&M reviewed Reji Wells MD social history reviewed E&M reviewed Reji Wells MD social history reviewed E&M reviewed Reji Wells MD social history E&M Marital Statu s: Single L breonna with family/friends E thnicity: Reji Wells MD drug use none Reji Wells MD social history reviewed E&M reviewed Reji Wells MD physical exercise, f requency, days per week yes [facility] caffeine use, averag e drinks per day yes [facility] alcohol use, average drinks per day none [facility] number of years as a smoker less than 10 years [facility] MENTAL STATUS Date Observation Value Provider assessment of judgme nt and insight E&M Alert and oriented to time, place and person. Mood and affect are normal. Reji Wells MD assessment of judgme nt and insight E&M Alert and oriented to time, place and person. Mood and affect are normal. Reji Wells MD assessment of judgme nt and insight E&M Alert and oriented to time, place and person. Mood and affect are normal. Reji Wells MD assessment of judgme nt and insight E&M Alert and oriented to time, place and person. Mood and affect are normal. Reji Wells MD assessment of judgme nt and insight E&M Alert and oriented to time, place and person. Mood and affect are normal. Reji Wells MD assessment of judgme nt and insight E&M Alert and oriented to time, place and person. Mood and affect are normal. Reji Wells MD FAMILY HISTORY Family Member Condition Mother Negative FH of Coron loyda Artery Disease INSURANCE PROVIDERS Payer name Policy type / Coverage type [place] [employer] party ID [employer] MCR ADVANTAGE PLAN 2 (HMO-POS) Medicare [id number] ADVANCE DIRECTIVES Name Date DISCUSSED - NO DECISION MADE TREATMENT PLAN Date Name Performer [id number],S, C linically stable. Continue on entresto, coreg, aldactone. Recent EF of 55%. Zari Tracey [id number],C,S till due to see Dr. Horan for adjustment to his BiPap Reji Wells MD [id number],C,H e has lost some weight since last visit C ontinued weight loss advised. Reji Wells MD [id number],S, Reji sarabia MD [id number],C,B lood pressure control is satisfactory. Reji Wells MD [id number],C,Last A1C was 4.5%. Reji Wells MD [id number],S, C linically stable. Continue on entresto, coreg, aldactone. Reji Wells MD [id number],S, N o recurrence. Reji Wells MD [id number],C, H willow needs to see Dr. Horan as he has been having problems with his BiPAP. Meagan Dietz [id number],S, W ill check bloodwork. Meagan Dietz [id number],S, C linically stable. Continue on entresto, coreg, aldactone. Reji Wells MD [id number],S, P atient advised to check his blood pressure regularly. Advised reduced sodium intake and routine monitoring of the blood pressure. We aim for blood pressure less than 130/80. Reji Wells MD [id number],C, C linically stable. Continue on entresto, coreg, aldactone. Zari Tracey [id number],S, Reji sarabia MD [id number],C, P atient advised to check his blood pressure regularly. Advised reduced sodium intake and routine monitoring of the blood pressure. We aim for blood pressure less than 130/80. Reji Wells MD [id number],S, Reji sarabia MD [id number],C,H as gained 20 lbs since last visit. W eight loss strongly advised. Advised to sign up for the COVID vaccine. Reji Wells MD Cardiology: S tabitha narayan in June. No recurrence. No clear etiology. Possible dx include CAD, significant arrhythmias. Will arrange for a telesentry monitor and a regadenoson stress test. Reji Wells MD Cardiology: M ultifactorial, likely due to weight gain, inactivity. Reji Wells MD Cardiology: Bhumika felder with Dr. Nany Bryan he patient is using CPAP on a regular basis. The patient has been benefiting from therapy and should continue use. Reji Wells MD Cardiology: U p 36 lbs since November. Likely stress and dietary indiscretion. Reji Wells MD Cardiology: B P mildly elevated. Reji Wells MD Cardiology: C linically stable. Continue on entresto, coreg, aldactone. Last ECHO EF 55%. Will repeat his echo. Reji Wells MD Cardiology:LBBB pers ists. Unchanged. His updated medication list for this problem includes: Carvedilol 25 Mg Tablet (Carvedilol) ..... Take 1 and 1/2 tablets by mouth twice daily. Reji Wells MD Cardiology:Blood pre ssure control is satisfactory. BP today: 126/84 P rior BP: 121/71 (07/31/2022) His updated medication list for this problem includes: Spironolactone 25 Mg Tablet (Spironolactone) ..... Take 1 tablet by mouth daily. Carvedilol 25 Mg Tablet (Carvedilol) ..... Take 1 and 1/2 tablets by mouth twice daily. Reji Wells MD Cardiology:Follows w ith Dr. Nany Moore as upcoming sleep study planned, has not been sleeping with bipap due to issues with insurance coverage. Reji Wells MD Cardiology:He has lo st 10 lbs since last visit C ontinued weight loss advised. Reji Wells MD Cardiology:Clinicall y stable. Continue on entresto, coreg, aldactone. Last ECHO EF 55% W ill update labs Reji Wells MD Cardiology: C linically stable. Continue on entresto, coreg, aldactone. Recent EF of 55%. Zari Tracey Cardiology:Still due to see Dr. Horan for adjustment to his BiPap Reji Wells MD Cardiology:He has lo st some weight since last visit C ontinued weight loss advised. Reji Wells MD Cardiology Reji Bowen Cardiology:Blood pre ssure control is satisfactory. Reji Wells MD Cardiology:Last A1C was 4.5%. Timothy Wells MD Cardiology: C linically stable. Continue on entresto, coreg, aldactone. Reji Wells MD Cardiology: N o recurrence. Reji Wells MD Cardiology: H willow needs to see Dr. Horan as he has been having problems with his BiPAP. Meagan Dietz Cardiology: W ill check bloodwork. Meagan Dietz Cardiology: C linically stable. Continue on entresto, coreg, aldactone. Reji Wells MD Cardiology: P atient advised to check his blood pressure regularly. Advised reduced sodium intake and routine monitoring of the blood pressure. We aim for blood pressure less than 130/80. Reji Wells MD Cardiology follow up : C linically stable. Continue on entresto, coreg, aldactone. Zari Sinclairjunior Cardiology follow up Reji wahl MD Cardiology follow up : P atient advised to check his blood pressure regularly. Advised reduced sodium intake and routine monitoring of the blood pressure. We aim for blood pressure less than 130/80. Reji Wells MD Cardiology follow up Reji wahl MD Cardiology follow up :Has gained 20 lbs since last visit. W eight loss strongly advised. Advised to sign up for the COVID vaccine. Reji Wells MD Telehealth:Weight lo ss advised. Advised to sign up for the COVID vaccine. [facility] Telehealth:Patient a dvised to check his blood pressure regularly. Advised reduced sodium intake and routine monitoring of the blood pressure. We aim for blood pressure less than 130/80. [facility] Telehealth:Compliant. [facility] Telehealth:No recurrence. [facility] Telehealth:Clinicall y stable. Continue on entresto, coreg, aldactone.Will repeat echo at his next appointment. [facility] Greenfield Cardiology:Not known to be hypertensive. We will continue to monitor his blood pressure. Advised reduced sodium intake and routine monitoring of the blood pressure. We aim for less than 130/80. Weight loss advised. Reji Wells MD Cardiology Reji Bowen Cardiology: W eight loss advised. Reji Wells MD Cardiology: N o recurrence. Reji Wells MD Cardiology: C ompliant Reji Wells MD Cardiology: C linically stable. Continue on entresto, coreg, aldactone. Reji Wells MD Cardiology:LBBB persists. Unchan ged. Reji Wells MD Cardiology:Compliant Reji wahl MD Cardiology:Clinicall y stable. Continue on entresto, coreg, aldactone. Will check his electrolytes and kidney function. Reji Wells MD Cardiology:Weight loss advised. Ha[facility] Greenfield Cardiology:The patie nt is using BiPAP on a regular basis. The patient has been benefiting from therapy and should continue use. [facility] Gin Cardiology:EF improv ed to 45%. He continues on Coreg, Aldactone, and Entresto. Haider Greenfield Cardiology followup :Weight loss advised. Reji Wells MD Cardiology followup :Clinically compensated. Continues on Entresto, Coreg, and Aldactone. Will check echocardiogram. Reji Wells MD Cardiology followup :Patient complains of frequent severe headaches in the mornings since starting BiPAP. Will consult Provider Miguel to see if the pressure is lowered to 12/8 instead of 15/11 improves his symptoms. Reji Wells MD Cardiology:No recurrence. Gemini Wells MD Cardiology:Weight loss advised. Reji Wells MD Cardiology:LBBB unchanged. Fang Wells MD Cardiology Reji Bowen Cardiology Reji Bowen Cardiology:Compliant. Reji chung MD Cardiology:Clinicall y stable. Continue with entresto,coreg and aldactone. Will repeat an echo to evaluate EF. Reji Wells MD Cardiology Reji Bowen Cardiology:No furthe r recurrence. Reji Wells MD Cardiology Reji Bowen Cardiology:Last EF 3 5% on echo in October 2017. Continues Entresto. Will check echo at next visit to evaluate EF. Reji Wells MD Cardiology Follow up Reji wahl MD Cardiology Follow up :Awaiting sleep study, with significant delays from [facility]. Will send request to [facility] for sleep titration study. Reji Wells MD Cardiology Follow up :Reduced EF on recent echo. He is on maximally tolerated medications. Will start him on Entresto. Reji Wells MD Cardiology Follow up :No further recurrence. Reji Wells MD Cardiology:No proble ms. Reji Wells MD Cardiology:Was suppo sed to have CPAP, but never happened. Will repeat sleep study. Reji Wells MD Cardiology:Recurrenc e of symptoms, likely deconditioning. Will arrange PFT's. Reji Wells MD Cardiology:Continues on Coreg and aldactone. Will check echocardiogram. Reji Wells MD Cardiology:No problems. Reji Wells MD Cardiology:Was suppo sed to have CPAP, but never happened. Will repeat sleep study. Reji Wells MD Cardiology:Recurrenc e of symptoms, likely deconditioning. Will arrange PFT's. Reji Wells MD Cardiology:Continues on Coreg and aldactone which he continues. Will check echocardiogram. Reji Wells MD Cardiology:Compensat ed. Will increase the dose of coreg to 37.5 mg twice daily. Reji Wells MD Cardiology Reji Bowen Cardiology:Congested nose with difficulty breathing. Given him Flonase to be used one puff in each nostril twice daily. Reji Wells MD Cardiology:Following ENT at [facility]. Reji Wells MD Cardiology:Weight loss advised. Reji Wells MD follow up: H is updated medication list for this problem includes: Coreg 12.5 Mg Tabs (Carvedilol) ..... One tab. twice daily Aldactone 25 Mg Tabs (Spironolactone) ..... 1 tablet daily Orders: E KG (CPT-71180) C omplete Echo (CPT-72319) Reji Wells MD follow up: O rders: C omplete Echo (CPT-81961) Reji Wells MD Follow-up s/p cardiac cath Fang Wells MD Follow-up s/p cardia c cath: B P today: 132/90 Prior BP: 157/97 (12/28/2010) N uclear Stress Findings: 1. Regadenoson mediated myocardial perfusion study 2 . Dilated left ventricle with severe left ventricular systolic dysfunction and a calculated ejection fraction of 23%. 3 . Patchy perfusion defect consistent with balanced circulation. CNE (12/25/2010) C ardiac Cath: Angiographically normal coronary arteries. Low normal ejection fraction of 45-50%. Normal right-sided heart pressures. (01/04/2011) E chocardiogram: Septal and mild inferior wall hypokinesis with overall normal left ventricular systolic function. Mild enlargement of left ventricular chamber. Mild concentric left ventricular hypertrophy. Left ventricular ejection fraction is estimated at 50%. There is mild enlargement of the left atrium. CNE (12/25/2010) Reji Wells MD Follow-up s/p cardia c cath: B P today: 132/90 Prior BP: 157/97 (12/28/2010) N uclear Stress Findings: 1. Regadenoson mediated myocardial perfusion study 2 . Dilated left ventricle with severe left ventricular systolic dysfunction and a calculated ejection fraction of 23%. 3 . Patchy perfusion defect consistent with balanced circulation. CNE (12/25/2010) E chocardiogram: Septal and mild inferior wall hypokinesis with overall normal left ventricular systolic function. Mild enlargement of left ventricular chamber. Mild concentric left ventricular hypertrophy. Left ventricular ejection fraction is estimated at 50%. There is mild enlargement of the left atrium. CNE (12/25/2010) C ardiac Cath: Angiographically normal coronary arteries. Low normal ejection fraction of 45-50%. Normal right-sided heart pressures. (01/04/2011) Rjei Wells MD follow up : B P today: 157/97 Prior BP: 136/83 (12/04/2010) N uclear Stress Findings: 1. Regadenoson mediated myocardial perfusion study 2 . Dilated left ventricle with severe left ventricular systolic dysfunction and a calculated ejection fraction of 23%. 3 . Patchy perfusion defect consistent with balanced circulation. CNE (12/25/2010) E chocardiogram: Septal and mild inferior wall hypokinesis with overall normal left ventricular systolic function. Mild enlargement of left ventricular chamber. Mild concentric left ventricular hypertrophy. Left ventricular ejection fraction is estimated at 50%. There is mild enlargement of the left atrium. CNE (12/25/2010) Reji Wells MD follow up Reji Bowen follow up Reji Bowen follow up : B P today: 157/97 Prior BP: 136/83 (12/04/2010) N uclear Stress Findings: 1. Regadenoson mediated myocardial perfusion study 2 . Dilated left ventricle with severe left ventricular systolic dysfunction and a calculated ejection fraction of 23%. 3 . Patchy perfusion defect consistent with balanced circulation. CNE (12/25/2010) E chocardiogram: Septal and mild inferior wall hypokinesis with overall normal left ventricular systolic function. Mild enlargement of left ventricular chamber. Mild concentric left ventricular hypertrophy. Left ventricular ejection fraction is estimated at 50%. There is mild enlargement of the left atrium. CNE (12/25/2010) Reji Wells MD follow up : B P today: 157/97 Prior BP: 136/83 (12/04/2010) N uclear Stress Findings: 1. Regadenoson mediated myocardial perfusion study 2 . Dilated left ventricle with severe left ventricular systolic dysfunction and a calculated ejection fraction of 23%. 3 . Patchy perfusion defect consistent with balanced circulation. CNE (12/25/2010) E chocardiogram: Septal and mild inferior wall hypokinesis with overall normal left ventricular systolic function. Mild enlargement of left ventricular chamber. Mild concentric left ventricular hypertrophy. Left ventricular ejection fraction is estimated at 50%. There is mild enlargement of the left atrium. CNE (12/25/2010) Reji Wells MD Date Name myocardial blood cait w (PET) Stress Cardiac PET-C T Complete Echo Stress Regadenoson Monitor - Telemetry (Mobile Cardiac) CBC (H/H, RBC, INDIC ES, WBC, PLT) COMPREHENSIVE METABO LIC PANEL, W/EGFR TSH, free T4, total T3 LIPID PANEL HEMOGLOBIN A1c TSH, free T4, total T3 CBC (INCLUDES DIFF/P LT) LIPID PANEL COMPREHENSIVE METABO LIC PANEL, W/EGFR EKG TSH, free T4, total T3 COMPREHENSIVE METABO LIC PANEL, W/EGFR LIPID PANEL HEMOGLOBIN A1c Complete Echo PROBNP, N TERMINAL TSH, free T4, total T3 LIPID PANEL HEMOGLOBIN A1c CBC (H/H, RBC, INDIC ES, WBC, PLT) COMPREHENSIVE METABO LIC PANEL, W/EGFR TSH, 3RD GENERATION CBC (H/H, RBC, INDIC ES, WBC, PLT) PROBNP, N TERMINAL HEMOGLOBIN A1c LIPID PANEL COMPREHENSIVE METABO LIC PANEL, W/EGFR Complete Echo PROBNP, N TERMINAL THYROID PANEL WITH T SH, 3RD GENERATION CBC (H/H, RBC, INDIC ES, WBC, PLT) HEMOGLOBIN A1c COMPREHENSIVE METABO LIC PANEL, W/EGFR LIPID PANEL Complete Echo Sleep Study Titratio n LIPID PANEL URINALYSIS, RANDOM, MICROALB/CREATININE HEMOGLOBIN A1c PROBNP, N TERMINAL BASIC METABOLIC PANE L W/EGFR MAGNESIUM COMPREHENSIVE METABO LIC PANEL, W/EGFR DLCO - 33788 FRC - 39379 FVC - 65187 MAGNESIUM COMPREHENSIVE METABO LIC PANEL, W/EGFR Complete Echo Sleep Study Home Complete Echo B TYPE NATRIURETIC P EPTIDE (BNP) COMPREHENSIVE METABO LIC PANEL W/EGFR CBC (H/H, RBC, INDIC ES, WBC, PLT) Complete Echo B TYPE NATRIURETIC P EPTIDE (BNP) BASIC METABOLIC PANE L W/EGFR Full PFT Complete Echo BASIC METABOLIC PANE L W/EGFR Complete Echo Complete Echo Cardiac Cath - CNE Stress Test - Adenos ine Complete Echo HISTORY OF PROCEDURES Procedure Date Procedure Name Provider Procedure Notes S tatus Complex e/m visit add on Reji Bowen [10/12/2024 - luis] APPROVED [ 10/11/2024 - luis] APPROVED [ 10/05/2024 - sp] completed EKG Reji Wells MD complet ed EKG Reji Wells MD complet ed EKG Reji Wells MD complet ed EKG Reji Wells MD complet ed EKG Reji Wells MD complet ed EKG Reji Wells MD complet ed EKG Reji Wells MD complet ed EKG Reji Wells MD complet ed EKG Reji Wells MD complet ed ePrescribe - Check t his box if eRx is used Reji Wells MD completed EKG Reji Wells MD complet ed FVC / MVV with bronchodilator - 35483 Reji Wells MD completed FRC - 58636 Reji Wells MD comple genna SpO2 - 39589 Reji Wells MD compl eted DLCO - 30652 Reji Wells MD compl eted SNOMED-CT: [id number] Current Medications Documented Reji Wells MD completed EKG Reji Wells MD complet ed SNOMED-CT: [id number] Current Medications Documented Reji Wells MD completed EKG Reji Wells MD complet ed EKG Reji Wells MD complet ed DLCO - 21649 Reji Wells MD compl eted FRC - 91578 Reji Wells MD comple genna FVC - 24504 Reji Wells MD comple genna EKG Reji Wells MD complet ed EKG Reji Wells MD complet ed EKG Reji Wells MD complet ed
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
--- OUTSIDE RECORDS SUMMARY | 2024-12-10 16:38 | XMS_ITS | Clinical Summary ---
Author Organization [facility] Address [address] [place] [address]. [place], [place] [address] [place] [address] Care Team Providers Care Cd Technician Name Role Phone None, Provider MD Primary Care Provider Unavaila ble Social History Tobacco Use Types Packs/Day Years Used Date Smoking Tobacco: Never Assessed Sex and Gender Information Value Date Recorded Sex Assigned at Not on file Legal Sex Male 6:22 PM CDT Gender Identity Not on file Sexual Orientation Not on file Plan of Treatment Health Maintenance Due Date Last Done Comments Annual Physical 1983 Hepatitis C 1998 DTaP, Tdap and Td Vaccines ( 1 - Tdap) 1999 Hepatitis B Vaccines (1 of 3 - 19+ 3-dose series) 1999 COVID-19 Vaccine (2023-2 5 season) 2024 Influenza Adult (#1) 2024 HPV Vaccines Aged Out No longer eligi ble based on patient's age to complete this topic Meningococcal B Vaccine Aged Out No l onger eligible based on patient's age to complete this topic Meningococcal Vaccine Aged Out No demetrius ravin eligible based on patient's age to complete this topic Pneumococcal Vaccine: Pediat rics (0 to 5 Years) and At-Risk Patients (6 to 64 Years) Aged Out No longer eligible b ased on patient's age to complete this topic RSV Immunizations Under 20 Months Aged Out No longer eligible based on patient's age to complete this topic Insurance [employer] MEDICAID [employer] Care Teams Cd Technician Relationship Specialty Start Date End Date None, Provider, PCP - General 06/16/19
--- OUTSIDE RECORDS SUMMARY | 2024-12-10 16:38 | XMS_ITS | Referral Summary ---
Author Organization [facility] Address [address] [facility] [place] [address] Care Team Providers Care Litigation Support Analyst Name Role Phone Davy Bacon MD Primary Care Provider [phone] [phone] Source Comments [facility],non-owned Affiliates and Associated Physician Practices is amultiple site organization consisting of ambulatory clinics and hospital sitesin [place], [place], [place] and [place]. This disclosure is being madepursuant to the Care Everywhere program and may not contain all information available regarding this patient. Last updated 18.[facility] Allergies Active Allergy Reactions Criticality Noted Date [...] 08/17/2019 3:51 PM CDT Plan of Treatment Not on file Care Teams Litigation Support Analyst Relationship Specialty Start Date End Date Davy Bacon MD PCP - General 05/21/12
[2024-12-10 16:43] VITALS: BP 116/65; PULSE 76; RESP 16; TEMP 36.3; O2SAT 100
--- NOTE | 2024-12-10 16:46 | ED.ABDPAIN ---
HPI - Abdominal Pain General Chief Complaint: Abdominal Pain Stated Complaint: I think I have a small hernia Time Seen by Provider: 12/10/24 16:46 Focused HPI: This is a 44 year old male that presents to the ER for left upper abdominal pain. Ongoing over the last 2 weeks. Reports the pain is worsening. Reports diarrhea. Denies fever, vomiting, dysuria, hematuria. GENERAL: Well-appearing, obese, and in no acute distress. HEAD: Normocephalic, atraumatic. CHEST: Clear to auscultation. ?No respiratory distress. HEART: Regular rate and rhythm.? NEURO: ?Alert and oriented x3. Patient screened in triage and initial orders placed.? ?Additional care and disposition to be based upon?diagnostic testing and treatment. Related Data Home Medications ?Medication ?Instructions ?Recorded ?Confirmed ?Last Taken ?Type carvedilol 25 mg tablet 25 mg PO BID 12/05/21 12/05/21 Unknown History omeprazole 20 mg tablet,delayed 20 mg PO BID 12/05/21 12/05/21 Unknown History release sacubitril 24 mg-valsartan 26 mg 1 tablet PO BID 12/05/21 12/05/21 Unknown History tablet (Entresto) spironolactone 25 mg tablet 25 mg PO DAILY 12/05/21 12/05/21 Unknown History Allergies Allergy/AdvReac Type Severity Reaction Status Date / Time Sulfa (Sulfonamide Allergy Rash Verified 12/05/21 17:29 Antibiotics) MYCINS Allergy Rash Uncoded 12/05/21 17:29 Course Vital Signs Vital signs: Vital Signs Temperature 97.3 F L 12/10/24 16:43 Pulse Rate 76 12/10/24 16:43 Respiratory Rate 16 12/10/24 16:43 Blood Pressure 116/65 12/10/24 16:43 Pulse Oximetry 100 12/10/24 16:43 Oxygen Delivery Room Air 12/10/24 16:43 Temperature 97.3 F L 12/10/24 16:43 Pulse Rate 76 12/10/24 16:43 Respiratory Rate 16 12/10/24 16:43 Blood Pressure 116/65 12/10/24 16:43 Pulse Oximetry 100 12/10/24 16:43 Oxygen Delivery Room Air 12/10/24 16:43 MDM - Abdominal Pain MDM Narrative Medical decision making narrative: Patient left after medical screening exam and initial workup and before any further evaluation or management Lab Data 12/10/24 17:33 12/10/24 17:33 Labs: Lab Results 12/10/24 Range/Units 17:33 WBC 11.0 H (4.5-10.0) K/mm3 RBC 4.30 L (4.6-6.20) M/mm3 Hgb 11.7 L (14.0-18.0) g/dL Hct 35.9 L (42.0-52.0) % MCV 83.5 (80-100) fl MCH 27.2 (26-34) pg MCHC 32.6 (32-36) g/dl RDW 17.0 H (11.5-14.5) % Plt Count 297 (150-375) k/mm3 MPV 10.0 (7.4-10.4) fl Immature Gran % (Auto) 0.9 H (0-0.5) % Neut % (Auto) 65.7 (45.5-73.1) % Lymph % (Auto) 24.5 (18.3-44.2) % [place] % (Auto) 6.0 (2.6-8.5) % Eos % (Auto) 2.4 (0-4.4) % Baso % (Auto) 0.5 (0.2-1.2) % Lymph # (Auto) 2.70 (0.9-3.2) K/mm3 [place] # (Auto) 0.7 H (0.1-0.6) K/mm3 Eos # (Auto) 0.3 (0-0.3) K/mm3 Baso # (Auto) 0.1 (0.0-0.1) K/mm3 Abs Immat Gran (auto) 0.10 H (0.00-0.031) K/mm3 Absolute Neuts (auto) 7.3 H (1.3-6.7) K/mm3 Absolute Nucleated RBC 0.000 (0.0-0.012) K/mm3 Nucleated RBC % 0.0 (0.0-0.2) % Sodium 140 (137-145) mmol/L Potassium 4.0 (3.4-5.0) mmol/L Chloride 104 (98-107) mmol/L Carbon Dioxide 26 (22-30) mmol/L Anion Gap 10 (4-12) mmol/L BUN 9 (9-20) mg/dL Creatinine 0.68 L (0.7-1.3) mg/dL Estim Creat Clear Calc 206 ml/min Estimated GFR > 60 (59 - ) Glucose 88 (65-110) mg/dL Calcium 8.8 (8.4-10.2) mg/dL Total Bilirubin 0.7 (0.2-1.3) mg/dL AST 25 (17-59) U/L ALT 31 (6-50) U/L Alkaline Phosphatase 75 (38-126) U/L Total Protein 7.0 (6.3-8.2) g/dL Albumin 3.6 (3.5-5.1) g/dL Lipase 47 (23-300) U/L Urine Color Yellow (Yellow) Urine Appearance Clear (Clear) Urine pH 6.0 (5.0-9.0) Ur Specific Ralston 1.022 (1.001-1.035) Urine Protein Negative (Negative) mg/dL Urine Glucose (UA) Negative (Negative) mg/dL Urine Ketones Trace H (Negative) mg/dL Ur Blood (Man) Negative (Negative) Urine Nitrate Negative (Negative) Urine Bilirubin Negative (Negative) Urine Urobilinogen 1.0 (<2.0) mg/dL Leukocyte Esterase Rfl Negative (Negative) DANIEL/UL Imaging Data Radiologist's impression: ITS Impressions Abdomen/Pelvis CT 12/10/24 19:47 IMPRESSION: 1. Umbilical hernia containing fat. 2. Diffuse hepatic steatosis. 3. Mild splenomegaly, which may be secondary to obesity. Discharge Plan Discharge Clinical Impression: Abdominal pain Qualifiers: Abdominal location: left upper quadrant Qualified Code(s): R10.12 - Left upper quadrant pain Patient Disposition: Elopement After Seen by Prov Condition: Stable Instructions: Antibiotic Form Patient Language: Greenlandic Prescriptions: No Action carvedilol 25 mg Tablet 25 mg PO BID spironolactone 25 mg Tablet 25 mg PO DAILY omeprazole 20 mg Tablet,Delayed Release (Dr/Ec) 20 mg PO BID Entresto 24-26 mg Tablet 1 tablet PO BID amoxicillin-pot clavulanate [Augmentin] 875-125 mg tablet 1 tablet PO Q12H Qty: 20 0RF chlorhexidine gluconate [Peridex] 0.12 % mouthwash 15 ml mucous membrane BID Qty: 118 0RF Follow-up/Referrals: PHYSICIAN,STRATEGIC PLANNING SPECIALIST [Primary Care Provider] -
[2024-12-10 17:41] LABS: Basophils Absolute Auto 0.1 K/mm3 (0.0-0.1); Basophils Percent Auto 0.5 % (0.2-1.2); Eosinophils Absolute Auto 0.3 K/mm3 (0-0.3); Eosinophils Percent Auto 2.4 % (0-4.4); Hematocrit 35.9 % (42.0-52.0); Hemoglobin 11.7 g/dL (14.0-18.0); Immature Granulocyte Percent A 0.9 % (0-0.5); Lymphocytes Percent Auto 24.5 % (18.3-44.2); Mean Corpuscular HGB Conc 32.6 g/dl (32-36); Mean Corpuscular Hemoglobin 27.2 pg (26-34); Mean Corpuscular Volume 83.5 fl (80-100); Monocytes Absolute Auto 0.7 K/mm3 (0.1-0.6); Neutrophils Absolute Auto 7.3 K/mm3 (1.3-6.7); Neutrophils Percent Auto 65.7 % (45.5-73.1); Platelet Count Result 297 k/mm3 (150-375)
[2024-12-10 17:42] LABS: Add Urine Microscopic? NO; Appearance Urine Clear (Clear); Bilirubin Urine Negative (Negative); Blood Urine Negative (Negative); Color Urine Yellow (Yellow); Glucose Urine UA Negative (Negative); Ketones Urine Trace mg/dL (Negative); Leukocyte Esterase Ur Negative LEU/UL (Negative); Nitrate Urine Negative (Negative); Protein Urine Negative (Negative); Specific Grav Ur 1.022 (1.001-1.035)
[2024-12-10 18:09] LABS: Alanine Aminotransferase 31 U/L (6-50); Albumin Level 3.6 g/dL (3.5-5.1); Alkaline Phosphatase 75 U/L (38-126); Anion Gap 10 mmol/L (4-12); Aspartate Amino Transferase 25 U/L (17-59); Bilirubin,Total 0.7 mg/dL (0.2-1.3); Blood Urea Nitrogen 9 mg/dL (9-20); Calcium 8.8 mg/dL (8.4-10.2); Carbon Dioxide 26 mmol/L (22-30); Chloride 104 mmol/L (98-107); Estimated CRCL calculation 206 ml/min; Estimated Glomerular Filt Rate > 60; Glucose 88 mg/dL (65-110); Lipase 47 U/L (23-300); Sodium 140 mmol/L (137-145)
--- NOTE | 2024-12-10 21:14 | PC.NURSE ---
patient to triage desk asking about results at this time. this rn explained to patient that I was unable to provide results at this time but provided patient with patient portal information and pamphlet at this time. this rn explained risks of leaving prior to seeing provider. pt verbalized understanding. pt is not in active distress in triage at this time. pt is able to ambulate with a steady unassisted gait towards the exit of the ed. this rn was able to remove 18 guage IV with iv catheter intact upon removal.
--- OUTSIDE RECORDS SUMMARY | 2024-12-10 21:24 | XMS_ITS | Encounter Summary ---
Author Organization [facility] Address 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
--- OUTSIDE RECORDS SUMMARY | 2024-12-10 21:24 | XMS_ITS | Referral Summary ---
Author Organization [facility] Address [address] [facility] [place] [address] Care Team Providers Care Lvn Lpn Name Role Phone Davy Bacon MD Primary Care Provider [phone] [phone] Source Comments [facility],non-owned Affiliates and Associated Physician Practices is amultiple site organization consisting of ambulatory clinics and hospital sitesin [place], [place], [place] and [place]. This disclosure is being madepursuant to the Care Everywhere program and may not contain all information available regarding this patient. Last updated 18.[facility] Allergies Active Allergy Reactions Criticality Noted Date [...] of Treatment Not on file Care Teams Lvn Lpn Relationship Specialty Start Date End Date Davy Bacon MD PCP - General 05/21/12
--- OUTSIDE RECORDS SUMMARY | 2024-12-10 21:24 | XMS_ITS | Encounter Summary ---
Author Organization [facility] Address 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
--- OUTSIDE RECORDS SUMMARY | 2024-12-10 21:24 | XMS_ITS | Clinical Summary ---
Author Organization [facility] Address [address] [place] [address] Care Team Providers Care Director Energy Name Role Phone No, Physician Primary Care Provider Allergies Active Allergy Reactions Criticality Noted Date [...] Date Type Department Care Team Description 12/10/2024 5:04 PM HORSE SHOW JUDGE - 12/10/2024 5:33 PM [facility] Emergency [facility] Emergency Department [address] [place] [address] Alex Rabago MD Discharge Disposition: Left Against Medical Advice 11/29/2024 7:59 PM HORSE SHOW JUDGE - 11/29/2024 10:00 PM [facility] Emergency [facility] Emergency Department [address] [place] [phone] Acute left-sided thoracic back pain (Primary Dx) [...] on file Legal Sex Male 10:13 PM HORSE SHOW JUDGE Gender Identity Not on file Sexual Orientation Not on file Obstetrics History Last Filed Vital Signs Vital Sign Reading Time Taken Comments Blood Pressure 110/61 12/10/2024 1:34 PM HORSE SHOW JUDGE Pulse 77 12/10/2024 1:34 PM HORSE SHOW JUDGE Temperature 36.6 ??C (97.8 ??F) 12/10/2024 1:33 PM CS T Respiratory Rate 18 12/10/2024 1:34 PM HORSE SHOW JUDGE Oxygen Saturation 98% 12/10/2024 1:34 PM HORSE SHOW JUDGE Inhaled Oxygen Concentration - - Weight 176 kg (388 lb 0.2 oz) 12/10/2024 1:33 PM HORSE SHOW JUDGE Height 194.3 cm (6' 4.5 ) 11/29/2024 4:30 PM HORSE SHOW JUDGE Body Mass Index 46.61 11/29/2024 4:30 PM HORSE SHOW JUDGE Plan of Treatment Health Maintenance Due Date [...] Diagnosis Comments EGFR STAT 12/10/2024 1:40 PM HORSE SHOW JUDGE DIFFERENTIAL AUTO STAT 12/10/2024 1:4 0 PM HORSE SHOW JUDGE LIPASE STAT 12/10/2024 1:40 PM HORSE SHOW JUDGE COMPREHENSIVE METABOLIC PANEL STAT 12/10/2024 1:40 PM HORSE SHOW JUDGE CBC WITH AUTO DIFFERENTIAL STAT 12/10/2024 1:40 PM HORSE SHOW JUDGE from Last 3 Months Results * eGFR (12/10/2024 1:40 PM HORSE SHOW JUDGE) eGFR >90 >=60 mL/min/1. 73 m2 Comment: [...] last reviewed 2021. Blood 12/10/2024 1:40 PM HORSE SHOW JUDGE 12/10/2024 1:50 PM HORSE SHOW JUDGE us Cleopatra Andrea MD LAB BLOOD ORDERABLE S Final Result [facility] (SACUL) [address] [facility] Department [place] [address] * Differential, auto (12/10/2024 1:40 PM HORSE SHOW JUDGE) Neutrophil abs 5.7 1.5 - 6.5 K/cumm [...] revised on 2018. Blood 12/10/2024 1:40 PM HORSE SHOW JUDGE 12/10/2024 1:50 PM HORSE SHOW JUDGE us Cleopatra Andrea MD LAB BLOOD ORDERABLE S Final Result [facility] (JULIANNE) [address] [facility] [place] [address] * (ABNORMAL) CBC with auto differential (12/10/2024 1:40 PM HORSE SHOW JUDGE) WBC 8.5 3.8 - 9.9 K/cumm Hgb [...] (JULIANNE) Blood (Blood, Venous) 12/10/2024 1:40 PM HORSE SHOW JUDGE 12/10/2024 1:50 PM HORSE SHOW JUDGE us Cleopatra Andrea MD LAB BLOOD ORDERABLE S Final Result [facility] (JULIANNE) [address] [facility] Department [place] [address] * Lipase (12/10/2024 1:40 PM HORSE SHOW JUDGE) Lipase 25 10 - 99 Units/L Blood (Blood, Venous) 12/10/2024 1:40 PM HORSE SHOW JUDGE 12/10/2024 1:50 PM HORSE SHOW JUDGE us Cleopatra Andrea MD LAB BLOOD ORDERABLE S Final Result [facility] (JULIANNE) [address] [facility] Department [place] [address] * (ABNORMAL) Comprehensive metabolic panel (12/10/2024 1:40 PM HORSE SHOW JUDGE) Pathologist [facility] Sodium 139 135 - 145 mmol/L Potassium, [...] [facility] (JULIANNE) Blood 12/10/2024 1:40 PM HORSE SHOW JUDGE 12/10/2024 1:50 PM HORSE SHOW JUDGE us Cleopatra Andrea MD LAB BLOOD ORDERABLE S Final Result [facility] (JULIANNE) [address] [facility] Department [place] [address] from Last 3 Months Insurance [facility] MEDICAID IDPA [employer] Care Teams Director Energy Relationship Specialty Start Date End Date No, Physician PCP - General 05/25/24
--- OUTSIDE RECORDS SUMMARY | 2024-12-10 21:24 | XMS_ITS | Clinical Summary ---
Author Organization [facility] Address [address] 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
--- OUTSIDE RECORDS SUMMARY | 2024-12-10 21:24 | XMS_ITS | Clinical Summary ---
Author Organization [facility] Address [address] [place] [address] Care Team Providers Care Trimming Cutter Machine Name Role Phone Davy Bacon MD Primary Care Provider [phone] [phone] Source Comments [facility],non-owned Affiliates and Associated Physician Practices is amultiple site organization consisting of ambulatory clinics and hospital sitesin [place], [place], [place] and [place]. This disclosure is being madepursuant to the Care Everywhere program and may not contain all information available regarding this patient. Last updated 18.[facility] Allergies Active Allergy Reactions Criticality Noted Date [...] age to complete this topic Care Teams Trimming Cutter Machine Relationship Specialty Start Date End Date Davy Bacon MD PCP - General 05/21/12
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
--- OUTSIDE RECORDS SUMMARY | 2024-12-10 21:24 | XMS_ITS | Patient Health Summary ---
Author Organization [facility] Address [address] [place] [address] Care Team Providers Care Secondary Special Education Teacher Name Role Phone Davy Bacon MD Primary Care Provider [phone] Note from [facility],non-owned Affiliates and Associated Physician Practices is amultiple site organization consisting of ambulatory clinics and hospital sitesin [place], [place], [place] and [place]. This disclosure is being madepursuant to the Care Everywhere program and may not contain all information available regarding this patient. Last updated 18.[facility] Allergies * Clindamycin(Other) -Low Criticality * [...] inked blue. ??The specimen is sectioned and account representative sections through the scar are submitted [...] were determined by the Histopathology [facility] of [facility].?? Some of these tests were [...] by Luli Gonzalez M.D. Electronically signed 08/24/2015 [facility] ([place]) Other (qualifier value) 08/23/2015 12:55 PM CDT 08/23/2015 1:57 PM CDT Narrative [facility] ([place]) - 08/24/2015 3:46 PM CDT Collection Date->08/23/15 Collection Time->12:55 PM Specimen A->Neck midline neck scar, perm path Lamberto Moffett MD LAB - PATHOLOGY/CYTO LOGY ORDERABLES [facility] ([place]) * (ABNORMAL) BASIC METABOLIC PANEL (CALCIUM TOTAL) (08/23/2015 11:22 AM CDT) Only the most recent of3 resultswithin the time period is included. BUN 17 7 - 26 mg/dL [facility] Creatinine 0.7 0.6 - 1.2 mg/dL [facility] Sodium 137 136 - 145 mmol/L [facility] Potassium 4.4 3.5 - 4.5 mmol/L [facility] Chloride 105 98 - 107 mmol/L [facility] CO2 22 22 - 29 mmol/L [facility] Glucose 88 70 - 115 mg/dL [facility] Calcium 8.9 8.4 - 10.2 mg/dL [facility] Anion Gap 14 8 - 18 [facility] BUN/Creatinine Ratio 24(H) 7 - 23 [facility] Osmolality Calculated 271 270 - 300 mOsm/kg [facility] eGFR >60 >60 mL/min/1.7 3 m2 [facility] Blood specimen (specimen) BLOOD SPECIMEN / Unknown 08/23/2015 11:22 AM CDT 08/23/2015 11:30 AM CDT Lamberto Moffett MD LAB - CHEMISTRY [facility] Performing Organization Address [facility] Co de Phone Number [facility] [address] [phone] * PATHOLOGY/GENETICS HISTORICAL-ONBASE (08/23/2015) Only the most recent of3 resultswithin the time period is included. 08/23/2015 Narrative [facility] - 08/25/2015 8:55 AM CDT Historical Provider LAB - CHEMISTRY Dara TOMPKINS Performing Organization Address City/[facility]/ZIP Co de Phone Number [facility] [address] * TYPE + SCREEN PANEL (01/04/2014 10:14 AM CHILD CARE CENTER ASSISTANT DIRECTOR) Interpretation ABO/Rh Patient O POS [facility] Antibody Screen NEGATIVE [facility] 01/04/2014 10:1 4 AM CHILD CARE CENTER ASSISTANT DIRECTOR 01/04/2014 1:11 PM CHILD CARE CENTER ASSISTANT DIRECTOR Cristhian Villalobos MD LAB - BLOOD BANK ORD ERABLES [facility] [address] [phone] * (ABNORMAL) CBC W AUTO DIFFERENTIAL (01/04/2014 10:14 AM CHILD CARE CENTER ASSISTANT DIRECTOR) WBC 9.6 3.5 - 10.5 10^3/uL [facility] RBC 5.25 4.30 - 5.70 10^6/uL [facility] Hemoglobin 14.7 13.5 - 17.5 g/dL [facility] Hematocrit 44.4 39.0 - 50.0 % [facility] MCV 84.6 81.0 - 97.0 FL [facility] MCH 28.0 28.0 - 34.0 PG [facility] MCHC 33.1 32.0 - 36.0 G/DL [facility] Platelet 262 150 - 400 10^3/uL [facility] RDW 16.5(H) 11.2 - 14.8 % [facility] RDW-SD 50.1(H) 36 - 50 [place] [facility] MPV 11.7 9.3 - 12.8 [place] [facility] Neutrophils % 70.2(H) 35.0 - 70.0 % [facility] Lymphocytes % 21.5 19.7 - 55.1 % [facility] Monocytes % 6.7 3 - 15 % [facility] Eosinophils % 1.3 0.0 - 6.0 % [facility] Basophils % 0.3 0.0 - 1.5 % [facility] Neutrophils Absolute 6.8 1.7 - 7.0 10^3/uL [facility] Lymphocyte Absolute 2.1 0.8 - 2.9 10^3/uL [facility] Monocytes Absolute 0.6 0.14 - 0.66 10^3/uL [facility] Eosinophils Absolute 0.12 0.00 - 0.22 10^3/uL [facility] Basophils Absolute 0.03 0.02 - 0.06 10^3/uL [facility] Differential Type AUTO DIFFERENTIAL [facility] Venous blood specimen (specimen) 01/04/2014 10:14 AM CHILD CARE CENTER ASSISTANT DIRECTOR 01/04/2014 1:10 PM CHILD CARE CENTER ASSISTANT DIRECTOR Cristhian Villalobos MD LAB - HEMATOLOGY ORD ERABLES [facility] [address] [place] [address], [facility] [phone] * XR CHEST 2VW (01/04/2014 9:52 AM CHILD CARE CENTER ASSISTANT DIRECTOR) Anatomical Region Laterality Modality Chest Other Impressions 01/04/2014 2:49 PM CHILD CARE CENTER ASSISTANT DIRECTOR Impression: No acute pulmonary process. Report dictated by Oleg Quezada M.D. (resident). This report was approved ??by Oleg Quezada M.D. ?? on 01/04/2014 1:58 PM . I, Dr. ESME MOORE M.D. have personally reviewed and interpreted this examination/study. This report was electronically signed by ESME MOORE M.D. ??on 01/04/2014 2:49 PM . Narrative 01/04/2014 2:49 PM CHILD CARE CENTER ASSISTANT DIRECTOR Exam: XR CHEST PA AND LATERAL Date: [...] M.D. on05/04/2013 11:55 AM . Joleen Pate PYTHON PROGRAMMER-STUDENT TRUCK DRIVER FLUOROSCOPY ORDERABLES * PATHOLOGY REPORTS - HPF HISTORICAL (09/23/2012 3:10 PM CHILD CARE CENTER ASSISTANT DIRECTOR) 09/23/2012 3:10 PM CHILD CARE CENTER ASSISTANT DIRECTOR Narrative [facility] - 09/23/2012 3:10 PM CHILD CARE CENTER ASSISTANT DIRECTOR Historical Provider LAB - PATHOLOGY/C YTOLOGY ORDERABLES Performing Organization Address City/State/[facility] de Phone Number [facility] [address] [place] [address] * XR KNEE LEFT 3VW (05/21/2012 12:56 [...] radiologist). Report dictated by Aroldo Raya Cliff Schwarz [facility] ORDERABLES * LAB HISTORICAL RESULTS-ONBASE (07/07/2011) Only the most recent of4 resultswithin the time period is included. 07/07/2011 Cristhian Villalobos MD LAB - CHEMISTRY [facility] Care Teams Secondary Special Education Teacher Relationship Specialty Start Date End Date Davy Bacon MD PCP - General 05/21/12
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
--- OUTSIDE RECORDS SUMMARY | 2024-12-10 21:24 | XMS_ITS | Encounter Summary ---
Author Organization [employer] Address [address] [place] [address] Care Team Providers Care Pipe Fitter Maintenance Name Role Phone Conversion, History Primary Care Provider Cherri jernigan Encounter Details Date Type Department Care Team (Late st Contact Info) Description 11/14/2000 Outpatient Historical [facility] Destin Moses MD [address] [place] [address] [place] [phone] Burn of unspecified degree of unspecified [...] Primary documented in this encounter Care Teams Pipe Fitter Maintenance Relationship Specialty Start Date End Date Conversion, History PCP - General 10/11/00 documented as of this encounter
--- OUTSIDE RECORDS SUMMARY | 2024-12-10 21:24 | XMS_ITS | Clinical Summary ---
Author Organization [facility] Address [address] [place] [address]. [place], [place] [address] [place] [id number] Care Team Providers Care Associate Curator Name Role Phone None, Provider MD Primary [...] OF REHAB SERVICES MEDICAID WELLCARE Care Teams Associate Curator Relationship Specialty Start Date End Date None, Provider, PCP - General 06/16/19
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
--- OUTSIDE RECORDS SUMMARY | 2024-12-10 21:24 | XMS_ITS | CONTINUITY OF CARE DOCUMENT ---
Author Name radha garcia Address Unknown Organization [facility] Address [address] [place] [address] Phone [phone] Care Team Providers Care Twist Maker Name Role Phone Russell MACHADO, Reji Unavailable NANY MACHADO, [facility] Unavailable [phone] KATHI SKAGGS MD Unavailable PROBLEMS Condition Status Date Provider Notes Elevated [...] In-person encounter Office Visit Reji Wells MD [facility] Syncope - In-person encounter Office Visit Reji Wells MD [facility] Morbid obesity - In-person encounter Office Visit Reji Wells MD [facility] - In-person encounter Office Visit Reji Wells MD [facility] - In-person encounter Office Visit Reji Wells MD [facility] - In-person encounter Office Visit Reji Wells MD [facility] - In-person encounter Office Visit Reji Wells MD [facility] HYPERTENSION - In-person encounter Office Visit Reji Wells MD [facility] - In-person encounter Office Visit Reji Wells MD [facility] 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 - In-person encounter Office Visit Reji Wells MD [facility] - In-person encounter Office Visit Reji Wells MD [facility] ANA ROSA - on BIPAP - In-person encounter Office Visit Reji Wells MD [facility] ANA ROSA - on BIPAPUnspecified sleep apneaCardiovascular screening - In-person encounter Office Visit Reji Wells MD [facility] 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ColdOSA - In-person encounter Office Visit Reji Wells MD [facility] - In-person encounter Office Visit Reji Wells MD [facility] - In-person encounter Office Visit Reji Wells MD [facility] 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 - In-person encounter Office Visit Reji Wells MD [facility] 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 - In-person encounter Office Visit Reji Wells MD [facility] - In-person encounter Office Visit Reji Wells MD [facility] 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 - In-person encounter Office Visit Reji Wells MD [facility] SHORTNESS OF BREATH - RESOLVED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 - In-person encounter Office Visit Reji Wells MD [facility] CHEST PAIN-NORMAL CATH 12/21 - In-person encounter Office Visit Reji Wells MD [facility] - In-person encounter Office Visit Reji Wells MD [facility] TRACHEAL STENOSIS-MECHANICAL COMPLICATION OF TRACHEOSTOMYMorbid obesityCHEST PAIN-NORMAL CATH 12/21SHORTNESS OF BREATH - RESOLVED VITAL SIGNS Date Observation Value Provider Body Mass Index (Ratio) 52.03 kg/m2 Navya Wells MD blood pressure, diastolic 85 mm[Hg] [facility] blood pressure, systolic 146 mm[Hg] Justine bruna [place] oxygen saturation, oximetry 97 % [facility] pulse rate 90 /min [facility] weight E&M 394.4 [lb_av] [facility] blood pressure, cuff size regular [facility] height E&M 73 [in_i] [facility] Body Mass Index (Ratio) 47.23 kg/m2 Navya [...] /min Freida Bhavna weight E&M 367.4 [lb_av] Fredia Bhavna height E&M 73 [in_i] Freida Liverut [...] blood pressure, systolic 150 mm[Hg] Kri sty [place] oxygen saturation, oximetry 98 % Roslyn [place] pulse rate 78 /min Roslyn Sarah respiratory rate E&M 19 /min Roslyn Sarah weight E&M 377.4 [lb_av] Roslyn [place] height E&M 73 [in_i] Roslyn [place] Body Mass Index (Ratio) 50.26 kg/m2 Navya Wells MD blood pressure, cuff size large La Shantal Owen blood pressure, diastolic 70 mm[Hg] La Shantal Owen blood pressure, systolic 138 mm[Hg] LaW tico Owen oxygen saturation, oximetry 99 % Emeka [...] Sarah oxygen saturation, oximetry 97 % Roslyn [place] pulse rate 69 /min Roslyn [place] respiratory rate E&M 18 /min Roslyn [place] blood pressure, cuff size regular Kr isty Sarah weight E&M 361 [lb_av] Roslyn [place] height E&M 73 [in_i] Roslyn [place] Body Mass Index (Ratio) 51.58 kg/m2 Navya [...] macedo Rodriguez oxygen saturation, oximetry 95 % [facility] rate E&M 16 /min [facility] pulse rate 71 /min [facility] weight E&M 384 [lb_av] [place] height E&M 73 [in_i] [facility] Body Mass Index (Ratio) 51.32 kg/m2 Rafa [...] tejadaelianecherie pulse rate 82 /min Fay Gibson [facility] weight E&M 385 [lb_av] Fay Gibson [facility] height E&M 73 [in_i] Fay Gibson [facility] Body Mass Index (Ratio) 51.58 kg/m2 Navya Wells MD blood pressure, diastolic, left arm 76 mm [Hg] Nitesh [facility] blood pressure, systolic, left arm 130 mm [Hg] Nitesh [facility] blood pressure, diastolic, right arm 80 m m[Hg] Nitesh [facility] blood pressure, systolic, right arm 138 m m[Hg] Niteshtremayne Dangelo blood pressure, diastolic 76 mm[Hg] Chencho Dangelo blood pressure, systolic 130 mm[Hg] Nisa Dangelo pulse rate 76 /min [facility] respiratory rate E&M 18 /min Nitesh [facility] oxygen saturation, oximetry 98 % Nitesh [facility] weight E&M 391 [lb_av] [facility] height E&M 73 [in_i] [facility] Body Mass Index (Ratio) 50.13 kg/m2 Rafa Rmoero blood pressure, diastolic 80 mm[Hg] Gilberto Smith blood pressure, systolic 120 mm[Hg] Isaac Smith oxygen saturation, oximetry 98 % Roslyn [place] respiratory rate E&M 18 /min Roslyn Sarah [...] diastolic, left arm 90 mm [Hg] Aneatris [facility] blood pressure, systolic, left arm 140 mm [Hg] Aneatris Octavio blood pressure, diastolic, right arm 100 mm[Hg] Aneatris Octavio blood pressure, systolic, right arm 138 m m[Hg] Aneatris Octavio blood pressure, diastolic 90 mm[Hg] An eatris Octavio blood pressure, systolic 140 mm[Hg] Ane atris Octavio pulse rate 88 /min Aneatris Octavio oxygen saturation, oximetry 99 % Aneatris [facility] respiratory rate E&M 18 /min Altaatri s [facility] weight E&M 293 [lb_av] Altaatris [facility] Body Mass Index (Ratio) 41.31 kg/m2 Kayode del cid [facility] blood pressure, diastolic, left arm 90 mm [Hg] Aneatris [facility] blood pressure, systolic, left arm 144 mm [Hg] Aneatris [facility] blood pressure, diastolic, right arm 100 mm[Hg] Aneatris [facility] blood pressure, systolic, right arm 150 m m[Hg] Aneatris [facility] blood pressure, diastolic 100 mm[Hg] An nevaeh [facility] blood pressure, systolic 150 mm[Hg] Alta billingss [facility] pulse rate 76 /min [facility] oxygen saturation, oximetry 99 % [facility] [place] [place] respiratory rate E&M 20 /min Banneri s [facility] weight E&M 312 [lb_av] Altaatris [facility] Body Mass Index (Ratio) 44.23 kg/m2 Kayode del cid [facility] blood pressure, diastolic, left arm 80 mm [Hg] Altaatris [facility] blood pressure, systolic, left arm 128 mm [Hg] Altaatris [facility] blood pressure, diastolic, right arm 76 m m[Hg] Altaatris [facility] blood pressure, systolic, right arm 130 m m[Hg] Altaatris [facility] blood pressure, diastolic 76 mm[Hg] An nevaeh [facility] blood pressure, systolic 130 mm[Hg] Alta billingss [facility] pulse rate 80 /min [facility] oxygen saturation, oximetry 99 % [facility] [place] [place] respiratory rate E&M 18 /min [facility]arh [facility] weight E&M 334 [lb_av] Altaatris [facility] height E&M 73 [in_i] Elliotis [facility] blood pressure, diastolic, left arm 82 mm [Hg] Brennan Mejia blood pressure, systolic, left arm 118 mm [Hg] Brennan [place] blood pressure, diastolic, right arm 90 m m[Hg] Brennan [place] blood pressure, systolic, right arm 132 m m[Hg] Brennan [place] blood pressure, diastolic 90 mm[Hg] Maryanne seph [place] blood pressure, systolic 132 mm[Hg] Adam eph [place] pulse rate 78 /min [place] oxygen saturation, oximetry 96 % Brennan [place] respiratory rate E&M 20 /min Brennan [place] weight E&M 360 [lb_av] [place] blood pressure, diastolic, left arm 97 mm [Hg] [place] blood pressure, systolic, left arm 157 mm [Hg] [place] blood pressure, diastolic, right arm 90 m m[Hg] Brennan [place] blood pressure, systolic, right arm 173 m m[Hg] Brennan [place] blood pressure, diastolic 97 mm[Hg] Maryanne seph [place] blood pressure, systolic 157 mm[Hg] Adam eph [place] pulse rate 83 /min [place] oxygen saturation, oximetry 97 % [place] respiratory rate E&M 14 /min [place] weight E&M 300 [lb_av] [place] blood pressure, diastolic, left arm 66 mm [Hg] Brittannie Shaun blood pressure, systolic, left arm 130 mm [Hg] Brittannie Shaun blood pressure, diastolic, right arm 83 m m[Hg] Brittannie [place] blood pressure, systolic, right arm 136 m m[Hg] Brittannie [place] blood pressure, diastolic 83 mm[Hg] Br ittannie [place] blood pressure, systolic 136 mm[Hg] Alice ttaamy [place] pulse rate 89 /min Mike ness oxygen [...] [employer] 0-149 cholesterol, serum 155 mg/dL [facility] [phone]/09/ 23 platelet count 265 X10E3/UL [facility] [phone]/09/ 23 red blood cell distribution width 16.2 [...] [employer] 3.5-5.2 sodium, serum 141 mmol/L [facility] 110-655 3068/09/ 23 urea nitrogen/creatinine ratio, serum 13 [employer] [...] [employer] 0-149 cholesterol, serum 167 mg/dL [facility] [phone]/02/ 26 thyroid stimulating hormone, serum 0.779 u[IU]/mL [facility] 0.450-4.500 hemoglobin A1C, blood, as % of total hemoglobin 4.9 % [facility] 4.8-5.6 platelet count 272 X10E3/UL [facility] [phone]/02/ 26 red blood cell distribution width 15.8 % [facility] 11[facility]-15.4 High mean corpuscular hemoglobin concentration, RBC 32.3 G/DL [facility] 31.5-35.7 mean corpuscular hemoglobin, RBC 27.7 pg [facility] 26.6-33.0 mean corpuscular volume, RBC 86 fL Link[facility] 79-97 hematocrit, blood 39.9 % [facility] 37.5-51.0 hemoglobin, blood 12.9 g/dL [facility] 13.0-17.7 Low erythrocyte (RBC) count 4.66 X10E6/UL [facility] 4.14-5.80 leukocyte count, blood 9.7 X10E3/UL [facility] 3.4-10.8 alanine aminotransferase (SGPT), serum 24 1/L [facility] 0-44 aspartate aminotransferase (SGOT), serum 20 1/L [facility] 0-40 alkaline phosphatase, serum 79 1/L [facility] 39-117 bilirubin, serum, total [...] [employer] 3.5-5.2 sodium, serum 143 mmol/L [facility] [phone]/02/ 26 urea nitrogen/creatinine ratio, serum 15 [employer] [...] 0-149 High cholesterol, serum 167 mg/dL [facility] [phone]/08/ 31 platelet count 293 X10E3/UL [facility] 230-044 5106/08/ 31 red blood cell distribution width 15.8 [...] [employer] 3.5-5.2 sodium, serum 141 mmol/L [facility] [phone]/08/ 31 urea nitrogen/creatinine ratio, serum 20 [employer]ic [...] [employer] 0-149 cholesterol, serum 170 mg/dL [facility] [phone]/05/ 22 calcium, serum 9.3 mg/dL [facility] 8.7-10.2 carbon dioxide, venous blood 24 mmol/L [facility] 18-29 chloride, serum 101 mmol/L [facility] 96-106 potassium, serum 4.8 mmol/L [facility] 3.5-5.2 sodium, serum 140 mmol/L [facility] [phone]/05/ 22 urea nitrogen/creatinine ratio, serum 16 [employer]ic [...] [facility] 3.5-5.2 sodium, serum 142 mmol/L [facility] [phone]/12/ 16 urea nitrogen/creatinine ratio, serum 21 [employer] [...] use, averag e drinks per day yes Gracilea Kareem number of years as a smoker [...] years Roslyn Sarah cigarette use yes Roslyn [place] smoking status Former smoker Roslyn Smith social [...] averag e drinks per day yes Annel Micheel drug use none Annel Morrison mellissa number [...] exercise, f requency, days per week yes [place] Rodriguez alcohol use, average drinks per day none [facility] caffeine use, averag e drinks per day yes [facility] drug use none Ana Laura Rodriguze number of years as a smoker less than 10 years [facility] cigarette use yes [facility] smoking status Former smoker [facility] social history reviewed E&M revi ewed - no changes required Reji Wells MD social history reviewed E&M revi ewed - no changes required Rjei Wells MD physical exercise, f requency, days [...] Payer name Policy type / Coverage type Thur[place] red democrat ID [employer] MCR ADVANTAGE PLAN 2 (HMO-POS) Medicare [id number] ADVANCE DIRECTIVES Name Date DISCUSSED - NO DECISION MADE TREATMENT PLAN Date Name Performer [id number],S, C linically stable. Continue on entresto, coreg, aldactone. Recent EF of 55%. Zari Tracey [id number],C,S till due to see Dr. Horan for adjustment to his BiPap Reji Wells MD [id number],C,H e has lost some weight since last visit C ontinued weight loss advised. Reji Wells MD [id number],S, Reji sarabia MD [id number],C,B lood pressure control is satisfactory. Reji Wells MD [id number],C,Last A1C was 4.5%. Reji Wells MD [id number],S, C linically stable. Continue on entresto, coreg, aldactone. Reji Wells MD [id number],S, N o recurrence. Reji Wells MD [id number],C, H willow needs to see Dr. Horan as he has been having problems with his BiPAP. Meagan Dietz [id number],S, W ill check bloodwork. Meagan Dietz [id number],S, C linically stable. Continue on entresto, coreg, aldactone. Reji Wells MD [id number],S, P atient advised to check his blood pressure regularly. Advised reduced sodium intake and routine monitoring of the blood pressure. We aim for blood pressure less than 130/80. Reji Wells MD [id number],C, C linically stable. Continue on entresto, coreg, aldactone. Zari Tracey [id number],S, Reji sarabia MD [id number],C, P atient advised to check his blood pressure regularly. Advised reduced sodium intake and routine monitoring of the blood pressure. We aim for blood pressure less than 130/80. Reji Wells MD [id number],S, Reji sarabia MD [id number],C,H as gained 20 lbs since last visit. [...] aim for blood pressure less than 130/80. [facility] Telehealth:Compliant. [facility] Telehealth:No recurrence. [facility] Telehealth:Clinicall y stable. Continue on entresto, coreg, [...] :Awaiting sleep study, with significant delays from [facility]. [facility] [...] daily. Reji Wells MD Cardiology:Following ENT at [facility]. Reji Wells MD Cardiology:Weight loss advised. Reji Wells MD follow up: H is updated medication list for this problem includes: Coreg 12.5 Mg Tabs (Carvedilol) ..... One tab. twice daily Aldactone 25 Mg Tabs (Spironolactone) ..... 1 tablet daily Orders: E KG (CPT-53378) C omplete Echo (CPT-29286) Reji Wells MD follow up: O rders: C omplete Echo (CPT-83366) Reji Wells MD Follow-up s/p cardiac cath [...] of 45-50%. Normal right-sided heart pressures. (01/04/2011) Reji Wells MD follow up : B [...] COMPREHENSIVE METABO LIC PANEL, W/EGFR DLCO - 39831 FRC - 49007 FVC - 16482 MAGNESIUM COMPREHENSIVE METABO LIC PANEL, W/EGFR Complete [...] ed FVC / MVV with bronchodilator - 59381 Reji Wells MD completed FRC - 65077 Reji Wells MD comple genna SpO2 - 56663 Reji Wells MD compl eted DLCO - 35751 Reji Wells MD compl eted SNOMED-CT: [id number] Current Medications Documented Reji Wells MD completed EKG Reji Wells MD complet ed SNOMED-CT: 944900178701173 Current Medications Documented Reji Wells MD completed EKG Reji Wells MD complet ed EKG Reji Wells MD complet ed DLCO - 76021 Reji Wells MD compl eted FRC - 32082 Reji Wells MD comple genna FVC - 46342 Reji Wells MD comple genna EKG Reji Wells MD complet ed EKG Reji Wells MD complet ed EKG Reji Wells MD complet ed
--- OUTSIDE RECORDS SUMMARY | 2024-12-10 21:24 | XMS_ITS | Encounter Summary ---
Author Organization [facility] Address [address] [place] [address] Care Team Providers Care Bike Technician Name Role Phone No, Physician Primary Care Provider [phone] Reason for Visit * Reason Comments Abdominal Pain Encounter Details Date Type Department Care Team ([facility] st Contact Info) Description 12/10/2024 5:04 PM FUNDRAISING ASSISTANT - 12/10/2024 5:33 PM FUNDRAISING ASSISTANT Emergency [facility] Emergency Department [address] [place] [address] Alex Rabago MD [address] [place] [address] Discharge Disposition: Left Against Medical Advice Social History Tobacco Use Types Packs/Day Years [...] on file Legal Sex Male 10:13 PM FUNDRAISING ASSISTANT Gender Identity Not on file Sexual Orientation Not on file documented as of this encounter Last Filed Vital Signs Vital Sign Reading Time Taken Comments Blood Pressure 110/61 12/10/2024 1:34 PM FUNDRAISING ASSISTANT Pulse 77 12/10/2024 1:34 PM FUNDRAISING ASSISTANT Temperature 36.6 ??C (97.8 ??F) 12/10/2024 1:33 PM CS T Respiratory Rate 18 12/10/2024 1:34 PM FUNDRAISING ASSISTANT Oxygen Saturation 98% 12/10/2024 1:34 PM FUNDRAISING ASSISTANT Inhaled Oxygen Concentration - - Weight 176 kg (388 lb 0.2 oz) 12/10/2024 1:33 PM FUNDRAISING ASSISTANT Height - - Body Mass Index 46.61 11/29/2024 4:30 PM FUNDRAISING ASSISTANT documented in this encounter Medications at Time of Discharge acetaminophen-cod eine (TYLENOL with CODEINE #3) 300-30 mg per tablet Take 1 tablet by mouth every 6 (six) hours as needed for pain. 12 tablet 10/06/2018 carvedilol (COREG) 25 mg tablet 09/20/2018 chlorhexidine (PERIDEX) 0.12 % solution Apply 15 mL to the mouth or throat 2 (two) times a day 120 mL 03/31/2023 cyclobenzaprine (FLEXERIL) 10 mg tablet Take 1 tablet (10 mg total) by mouth 3 (three) times a day as needed for muscle spasms 30 tablet 11/29/2024 ENTRESTO 24-26 mg tabletIndications :chronic heart failure 09/20/2018 HYDROcodone-aceta minophen (NORCO) 5-325 mg per tabletIndications :Pain Take 1 tablet by mouth every 6 (six) hours as needed for pain for up to 15 doses 15 tablet 03/31/2023 ketorolac (TORADOL) 10 mg tablet Take 1 tablet (10 mg total) by mouth every 6 (six) hours as needed for pain 20 tablet 11/29/2024 lidocaine (LIDODERM) 5 % Place 1 patch on the skin daily Use patch for 12 hours on, 12 hours off. Discard after each use 30 patch 11/29/2024 lidocaine viscous (XYLOCAINE) 2 % solutionIndicatio ns:Mouth Irritation Apply 10 mL to the mouth or throat 3 (three) times a day as needed (for mouth/dental pain) 100 mL 03/31/2023 methocarbamoL (ROBAXIN) 500 mg tablet Take 1 tablet (500 mg total) by mouth 2 (two) times a day 20 tablet 05/25/2024 naproxen (NAPROSYN) 500 mg tablet Take 1 tablet (500 mg total) by mouth 2 (two) times a day with meals 30 tablet 05/25/2024 omeprazole (PriLOSEC) 20 mg capsule 09/20/2018 spironolactone (ALDACTONE) 25 mg tablet 09/20/2018 documented as of this encounter Discharge Disposition Disposition Code Departure Means Destination Comment s Left Against Medical Advice documented in this encounter ED Notes * Brandin Garcia RN - 12/10/2024 1:31 PM CST Pt to ED via POV. Per Pt he has had LUQ for the past 2 weeks. Pt reports diarrhea x2 weeks. RAISING ASSISTANT documented in this encounter Plan of Treatment Not on file documented as of this encounter Procedures Procedure Name Priority Date/Time Associated Diagnosis Comments EGFR STAT 12/10/2024 1:40 PM FUNDRAISING ASSISTANT DIFFERENTIAL AUTO STAT 12/10/2024 1:4 0 PM FUNDRAISING ASSISTANT CBC WITH AUTO DIFFERENTIAL STAT 12/10/2024 1:40 PM FUNDRAISING ASSISTANT LIPASE STAT 12/10/2024 1:40 PM FUNDRAISING ASSISTANT COMPREHENSIVE METABOLIC PANEL STAT 12/10/2024 1:40 PM FUNDRAISING ASSISTANT documented in this encounter Results * eGFR (12/10/2024 1:40 PM FUNDRAISING ASSISTANT) eGFR >90 >=60 mL/min/1. 73 m2 Comment: [...] last reviewed 2021. Blood 12/10/2024 1:40 PM FUNDRAISING ASSISTANT 12/10/2024 1:50 PM FUNDRAISING ASSISTANT us Cleopatra Andrea MD LAB BLOOD ORDERABLE S Final Result [facility] ([place]) [address] [facility] [place] [address] * Differential, auto (12/10/2024 1:40 PM FUNDRAISING ASSISTANT) Neutrophil abs 5.7 1.5 - 6.5 K/cumm [...] revised on 2018. Blood 12/10/2024 1:40 PM FUNDRAISING ASSISTANT 12/10/2024 1:50 PM FUNDRAISING ASSISTANT Cleopatra Andrea MD LAB BLOOD ORDERABLE S Final Result [facility] ([place]) [address] [facility] [address] [place] [address] * Lipase (12/10/2024 1:40 PM FUNDRAISING ASSISTANT) Pathologist [facility] Lipase 25 10 - 99 Units/L Blood (Blood, Venous) 12/10/2024 1:40 PM FUNDRAISING ASSISTANT 12/10/2024 1:50 PM FUNDRAISING ASSISTANT Cleopatra Andrea MD LAB BLOOD ORDERABLE S Final Result [facility] ([place]) [address] [facility] [address] [place] [address] * (ABNORMAL) Comprehensive metabolic panel (12/10/2024 1:40 PM FUNDRAISING ASSISTANT) Sodium 139 135 - 145 mmol/L Potassium, [...] [facility] ([place]) Blood 12/10/2024 1:40 PM FUNDRAISING ASSISTANT 12/10/2024 1:50 PM FUNDRAISING ASSISTANT us Cleopatra Andrea MD LAB BLOOD ORDERABLE S Final Result [facility] ([place]) 1 [facility] [place] [address] * (ABNORMAL) CBC with auto differential (12/10/2024 1:40 PM FUNDRAISING ASSISTANT) WBC 8.5 3.8 - 9.9 K/cumm Hgb [...] (JULIANNE) Blood (Blood, Venous) 12/10/2024 1:40 PM FUNDRAISING ASSISTANT 12/10/2024 1:50 PM FUNDRAISING ASSISTANT us Cleopatra Andrea MD LAB BLOOD ORDERABLE S Final Result [facility] ([place]) [address] [facility] [place] [address] documented in this encounter Visit Diagnoses Not on filedocumented in this encounter Orders Nursing Count Last Ordered Date First Orde red Date MISCELLANEOUS NURSING CARE ORDER (SPECIFY) 1 12/10/2024 IV Count Last Ordered Date First Orde red Date SALINE LOCK IV 1 12/10/2024 documented in this encounter Care Teams Bike Technician Relationship Specialty Start Date End Date No, Physician PCP - General 05/25/24 documented as of this encounter
--- OUTSIDE RECORDS SUMMARY | 2024-12-10 21:24 | XMS_ITS | Encounter Summary ---
Author Organization [facility] [employer] Address [address] [place] [address] Care Team Providers Care Car Seat Maker Name Role Phone Conversion, History Primary Care [...] on file Legal Sex Male 3:17 AM SADDLE MAKER Gender Identity Not on file Sexual Orientation Not on file documented as of this encounter Plan of Treatment Not on file documented as of this encounter Visit Diagnoses Diagnosis Stenosis of larynx- Primary documented in this encounter Care Teams Car Seat Maker Relationship Specialty Start Date End Date Conversion, History PCP - General 10/11/00 documented as of this encounter
--- OUTSIDE RECORDS SUMMARY | 2024-12-10 21:24 | XMS_ITS | Referral Summary ---
Author Organization [facility] Address [address] [place] [address] Care Team Providers Care Expeller Worker Name Role Phone No, Physician Primary Care Provider [phone] Encounters Date Type Department Care Team Description 12/10/2024 5:04 PM BULLET SWAGING MACHINE OPERATOR - 12/10/2024 5:33 PM [facility] Emergency Department [address] [place] [id number] Alex Rabago MD Discharge Disposition: Left Against Medical Advice 11/29/2024 7:59 PM BULLET SWAGING MACHINE OPERATOR - 11/29/2024 10:00 PM [facility] Emergency Department [facility] [place] [address] Acute left-sided thoracic back pain (Primary Dx) [...] on file Legal Sex Male 10:13 PM BULLET SWAGING MACHINE OPERATOR Gender Identity Not on file Sexual Orientation Not on file Last Filed Vital Signs Vital Sign Reading Time Taken Comments Blood Pressure 110/61 12/10/2024 1:34 PM BULLET SWAGING MACHINE OPERATOR Pulse 77 12/10/2024 1:34 PM BULLET SWAGING MACHINE OPERATOR Temperature 36.6 ??C (97.8 ??F) 12/10/2024 1:33 PM CS T Respiratory Rate 18 12/10/2024 1:34 PM BULLET SWAGING MACHINE OPERATOR Oxygen Saturation 98% 12/10/2024 1:34 PM BULLET SWAGING MACHINE OPERATOR Inhaled Oxygen Concentration - - Weight 176 kg (388 lb 0.2 oz) 12/10/2024 1:33 PM BULLET SWAGING MACHINE OPERATOR Height 194.3 cm (6' 4.5 ) 11/29/2024 4:30 PM BULLET SWAGING MACHINE OPERATOR Body Mass Index 46.61 11/29/2024 4:30 PM BULLET SWAGING MACHINE OPERATOR Plan of Treatment Not on file Procedures Procedure Name Priority Date/Time Associated Diagnosis Comments EGFR STAT 12/10/2024 1:40 PM BULLET SWAGING MACHINE OPERATOR DIFFERENTIAL AUTO STAT 12/10/2024 1:4 0 PM BULLET SWAGING MACHINE OPERATOR LIPASE STAT 12/10/2024 1:40 PM BULLET SWAGING MACHINE OPERATOR COMPREHENSIVE METABOLIC PANEL STAT 12/10/2024 1:40 PM BULLET SWAGING MACHINE OPERATOR CBC WITH AUTO DIFFERENTIAL STAT 12/10/2024 1:40 PM BULLET SWAGING MACHINE OPERATOR from Last 3 Months Results * eGFR (12/10/2024 1:40 PM BULLET SWAGING MACHINE OPERATOR) eGFR >90 >=60 mL/min/1. 73 [...] last reviewed 2021. Blood 12/10/2024 1:40 PM BULLET SWAGING MACHINE OPERATOR 12/10/2024 1:50 PM BULLET SWAGING MACHINE OPERATOR us Cleopatra Andrea MD LAB BLOOD ORDERABLE S Final Result [facility] ([place]) [address] [facility] Department of Laboratories [place], [place] [id number] * Differential, auto (12/10/2024 1:40 PM BULLET SWAGING MACHINE OPERATOR) Neutrophil abs 5.7 1.5 - 6.5 K/cumm Imm gran abs 0.1 0.0 - 0.1 K/cumm [facility] ([place]) Lymphocyte abs 2.1 0.8 - 3.3 K/cumm [facility] ([place]) Monocyte abs 0.4 0.2 - 0.8 K/cumm [facility] ([place]) Eosinophil abs 0.2 0.0 - 0.5 K/cumm [facility] ([place]) Basophil abs 0.1 0.0 - 0.1 K/cumm [facility] ([place]) Neutrophil pct 66.4 % [facility] ([place]) Comment: Interpretive Data Percent cell count reference [...] revised on 2018. Monocyte pct 4.5 % [facility] ([place]) Comment: Interpretive Data Percent cell [...] revised on 2018. Basophil pct 0.7 % [facility] ([place]) Comment: Interpretive Data Percent cell count reference ranges are not reported, since discordance with absolute values may lead to misinterpretation of CBC data. Current Interpretive Data was last revised on 2018. Blood 12/10/2024 1:40 PM BULLET SWAGING MACHINE OPERATOR 12/10/2024 1:50 PM BULLET SWAGING MACHINE OPERATOR us Cleopatra Andrea MD LAB BLOOD ORDERABLE S Final Result [facility] ([place]) [address] [facility] [place] [address] * (ABNORMAL) CBC with auto differential (12/10/2024 1:40 PM BULLET SWAGING MACHINE OPERATOR) WBC 8.5 3.8 - 9.9 K/cumm Hgb 11.3(L) 13.0 - 17.5 g/dL [facility] ([place]) Hct 33.7(L) 38.9 - 50.3 % [...] ([place]) Blood (Blood, Venous) 12/10/2024 1:40 PM BULLET SWAGING MACHINE OPERATOR 12/10/2024 1:50 PM BULLET SWAGING MACHINE OPERATOR Cleopatra Andrea MD LAB BLOOD ORDERABLE S Final Result [facility] ([place]) [address] [facility] [place] [address] * Lipase (12/10/2024 1:40 PM BULLET SWAGING MACHINE OPERATOR) Lipase 25 10 - 99 Units/L Blood (Blood, Venous) 12/10/2024 1:40 PM BULLET SWAGING MACHINE OPERATOR 12/10/2024 1:50 PM BULLET SWAGING MACHINE OPERATOR Cleopatra Andrea MD LAB BLOOD ORDERABLE S Final Result [facility] ([place]) [address] [facility] [place] [address] * (ABNORMAL) Comprehensive metabolic panel (12/10/2024 1:40 PM BULLET SWAGING MACHINE OPERATOR) Sodium 139 135 - 145 [...] [facility] ([place]) Blood 12/10/2024 1:40 PM BULLET SWAGING MACHINE OPERATOR 12/10/2024 1:50 PM BULLET SWAGING MACHINE OPERATOR us Cleopatra Andrea MD LAB BLOOD ORDERABLE S Final Result [facility] ([place]) [facility] [place] [address] from Last 3 Months Insurance [facility] MEDICAID [employer] [facility] MEDICARE [employer] Care Teams Expeller Worker Relationship Specialty Start Date End Date No, Physician PCP - General 05/25/24
== END 2024-12-10 22:08 | disposition left against medical advice (07) ==
PROVIDERS: Emergency Provider Physician Assistant
DX: R10.12 Left upper quadrant pain (principal); R16.1 Splenomegaly, not elsewhere classified; K76.0 Fatty (change of) liver, not elsewhere classified; K42.9 Umbilical hernia without obstruction or gangrene; Z79.899 Other long term (current) drug therapy
CPT/HCPCS: 36415; 74177; 80053; 81003; 83690; 85025; 99284; Q9967